=== PATIENT | female | born 1980 | race Caucasian/White ===

== ENCOUNTER 2020-02-03 08:40 | Emergency (ER) | payer BC, OTHER ==
[~2020-02-03] VITALS: Ht 170 cm; Wt 100.0 kg
[~2020-02-03 08:40] MED LIST: ABCT PO; AC500T PO; CEFP500T4 PO; CODE-54 PO; CPR500T PO; CYCL10TA9 PO; DCS100C PO; DXCC100CRX PO; FRSM20T PO; FURO20TA4 PO; IBP600T1 PO; KETO-22 PO; MAGN400C PO; MECL12.579 PO; METR500T PO; MGX400T PO; MTP25TSR PO; NAPR250T34 PO; NSTU5 PO; OXYC-12 PO; POTA10TA36 PO; POTA20TA15 PO; POTA40LI PO; PRD20T PO; PREN1TAB19 PO; PRM25T PO; PRM5C60 TOP; TRIA16.5 NS
[2020-02-03 09:27] LABS: BASOPHILS % (AUTO) 0 % (0-10); EOSINOPHILS # (AUTO) 0.1 10^3/uL (0.0-0.3); EOSINOPHILS % (AUTO) 1 % (0-10); HEMATOCRIT 41 % (35-52); HEMOGLOBIN 14.1 G/DL (11.5-16.0); LYMPHOCYTES # (AUTO) 1.8 X 10^3 (1.0-4.0); LYMPHOCYTES % (AUTO) 22 % (12-44); MEAN CORPUSCULAR HEMOGLOBIN 31 PG (25-34); MEAN CORPUSCULAR HGB CONC 35 G/DL (32-36); MEAN CORPUSCULAR VOLUME 90 FL (80-99); MEAN PLATELET VOLUME 10.1 FL (7.4-10.4); MONOCYTES # (AUTO) 0.3 X 10^3 (0.0-1.0); MONOCYTES % (AUTO) 3 % (0-12); NEUTROPHILS % (AUTO) 74 % (42-75); PLATELET COUNT 250 10^3/uL (130-400); RED CELL DISTRIBUTION WIDTH 11.7 % (10.0-14.5); WHITE BLOOD COUNT 8.2 10^3/uL (4.3-11.0)
[2020-02-03 09:36] LABS: ALBUMIN 3.8 GM/DL (3.2-4.5); CHLORIDE 106 MMOL/L (98-107); POTASSIUM 3.6 MMOL/L (3.6-5.0); SODIUM 139 MMOL/L (135-145)
[2020-02-03 09:37] LABS: CALCIUM 8.8 MG/DL (8.5-10.1)
[2020-02-03 09:38] LABS: GLUCOSE 114 MG/DL (70-105); TOTAL PROTEIN 6.4 GM/DL (6.4-8.2)
[2020-02-03 09:39] LABS: CARBON DIOXIDE 23 MMOL/L (21-32)
[2020-02-03 09:40] LABS: BILIRUBIN,TOTAL 0.7 MG/DL (0.1-1.0)
[2020-02-03 09:41] LABS: ALKALINE PHOSPHATASE 79 U/L (40-136)
[2020-02-03 09:42] LABS: CREATININE SERUM 0.64 MG/DL (0.60-1.30); GFR ESTIMATED > 60
[2020-02-03 09:43] LABS: BUN/CREATININE RATIO 6
[2020-02-03 09:45] LABS: ALANINE AMINOTRANSFERASE 34 U/L (0-55)
--- OUTSIDE RECORDS SUMMARY | 2020-02-03 09:46 | XMS REPORT ---
Author Author Milly Leal Organization [facility] Address [address] [place] [address] Care Team Providers Care Bagel Maker Name Role Phone GABRIELLE Leal Unavailable PROBLEMS Type Condition ICD9-CM Code WPT71-FJ Code Onset Dates Condition S tatus SNOMED Code Problem Carpal tunnel syndrome 354.0 Active 68584903 Problem Goiter, unspecified 240.9 Active [id number] ALLERGIES No Information ENCOUNTERS Encounter Location Date Diagnosis [place] [address] [address] December, Superficial acne vulgaris L7 0.0 [facility] [address] [address] Sep, [facility] [address] [address] Apr, Acute nasopharyngitis J00 [place] [address] [address] May, Bronchitis J40 [place] [address] [address] Jan, Encounter for immunization Z 23 [place] [address] [address] Nov, Daily headache R51 ; Elevate d blood pressure reading R03.0 ; Screening for diabetes mellitus (DM) Z13.1 and Screening for lipid disorders Z13.220 [facility] [address] [address] May, Dysuria R30.0 [place] [address] [address] Aug, Hair loss L65.9 [facility] [address] [id number] [address] [place] [address], [place] [address] Aug, Hair loss L65.9 [facility] [address] [id number] [address] [place] [address], [place] [address] Aug, [facility] [address] [id number] [address] [place] [address], [place] [address] Aug, Arm pain M79.603 [facility] [address] [id number] [address] [place] [address], [place] [address] Nov, [facility] [address] [id number] [address] [place] [address], [place] [address] Nov, [facility] [address] [id number] [address] [place] [address], [place] [address] Aug, [facility] [address] [id number] [address] [place] [address], [place] [address] Aug, [facility] [address] [id number] [address] [place] [address], [place] [address] Jun, [facility] [address] [id number] [address] [place] [address], [place] [address] Jun, [facility] [address] [id number] [address] [place] [address], [place] [address] Jun, [facility] [address] [id number] [address] [place] [address], [place] [address] Jun, [facility] [address] [id number] [address] [place] [address], [place] [address] Jun, [facility] [address] [id number] [address] [place] [address], [place] [address] Feb, [facility] [address] [id number] [address] [place] [address], [place] [address] Feb, [facility] [address] [id number] [address] [place] [address], [place] [address] Feb, [facility] [address] [id number] [facility] [place] [address] Feb, [facility] [address] [id number] [address] [place] [address], [place] [address] Jan, [facility] [address] [id number] [address] [place] [address], [place] [address] Jan, [facility] [address] [id number] [address] [place] [address], [place] [address] Jan, [facility] [address] [id number] [address] [place] [address], [place] [address] Jan, [facility] [address] [id number] [address] [place] [address], [place] [address] Nov, [facility] [address] [id number] [address] [place] [address], [place] [address] Nov, [facility] [address] [id number] [address] [place] [address], [place] [address] Oct, [facility] [address] [id number] [address] [place] [address], [place] [address] Oct, [facility] [address] [id number] [address] [place] [address], [place] [address] Sep, [facility] [address] [id number] [address] [place] [address], [place] [address] Sep, [facility] [address] [id number] [address] [place] [address], [place] [address] Aug, [facility] [address] [id number] [address] [place] [address], [place] [address] Aug, [facility] [address] [id number] [address] [place] [address], [place] [address] Jun, [facility] [address] [id number] [address] [place] [address], [place] [address] Jun, [facility] [address] [id number] [address] [place] [address], [place] [address] Jun, [facility] [address] [id number] [address] [place] [address], [place] [address] Jun, [facility] [address] [id number] [address] [place] [address], [place] [address] Jun, [facility] [address] [id number] [address] [place] [address], [place] [address] Jun, [facility] [address] [id number] [address] [place] [address], [place] [address] Jun, [facility] [address] [id number] [address] [place] [address], [place] [address] Jun, [facility] [address] [id number] [address] [place] [address], [place] [address] Mar, [facility] [address] [id number] [address] [place] [address], [place] [address] Mar, [facility] [address] [id number] [address] [place] [address], [place] [address] Mar, [facility] [address] [id number] [address] [place] [address], [place] [address] Mar, [facility] [address] [id number] [address] [place] [address], [place] [address] Mar, [facility] [address] [id number] [address] [place] [address], [place] [address] Feb, [facility] [address] [id number] [address] [place] [address], [place] [address] Feb, [facility] [address] [id number] [address] [place] [address], [place] [address] Feb, [facility] [address] [id number] [address] [place] [address], [place] [address] Sep, [facility] [address] [id number] [address] [place] [address], [place] [address] Mar, [facility] [address] [facility] [id number] [address] [place] [address] Aug, [facility] [address] [facility] [id number] [address] [place] [address] Jun, [facility] [address] [facility] [id number] [address] [place] [address] Aug, [facility] [address] [facility] [id number] [address] [place] [address] Nov, [facility] [address] [facility] [id number] [address] [place] [address] Jul, [facility] [address] [facility] [id number] [address] [place] [address] Jun, IMMUNIZATIONS No Known Immunizations SOCIAL HISTORY Never Assessed REASON FOR VISIT PLAN OF CARE VITAL SIGNS MEDICATIONS Unknown Medications RESULTS No Results PROCEDURES No Known procedures INSTRUCTIONS MEDICATIONS ADMINISTERED No Known Medications MEDICAL (GENERAL) HISTORY Type Description Date Surgical History section x2
--- OUTSIDE RECORDS SUMMARY | 2020-02-03 09:46 | XMS REPORT ---
Author Author Milly GARIBAY Organization [facility] Address [address] [place] [address] Care Team Providers Care Bar Turner Name Role Phone MADI GARIBAY Unavailable PROBLEMS Type Condition ICD9-CM Code HZY70-PW Code Onset Dates Condition S tatus SNOMED Code Problem Carpal tunnel syndrome 354.0 Active [id number] Problem Goiter, unspecified 240.9 Active 3103144 ALLERGIES No Information ENCOUNTERS Encounter Location Date Diagnosis [place] [id number] [address] December, Superficial acne vulgaris L7 0.0 [facility] [address] [address] Sep, [facility] [address] [address] Apr, Acute nasopharyngitis J00 [place] [address] [address] May, Bronchitis J40 [place] [address] [address] Jan, Encounter for immunization Z 23 [facility] [address] [address] Nov, Daily headache R51 ; Elevate d blood pressure reading R03.0 ; Screening for diabetes mellitus (DM) Z13.1 and Screening for lipid disorders Z13.220 [facility] [address] [address] May, Dysuria R30.0 [facility] [address] [address] Aug, Hair loss L65.9 [facility] [address] [id number] [address] [place] [address], [place] [address] Aug, Hair loss L65.9 [facility] [address] [id number] [address] [place] [address], [place] [address] Aug, [facility] [address] [id number] [address] [place] [address], [place] [address] Aug, Arm pain M79.603 [facility] [address] [id number] [address] [place] [address], [place] [address] Nov, [facility] [address] [id number] [address] [place] [address], [place] [address] Nov, [facility] [address] [id number] [address] [place] [address], [place] [address] Aug, [facility] [address] [id number] [address] [place] [address], [place] [address] Aug, [facility] [address] [id number] [address] [place] [address], [place] [address] Jun, [facility] [address] [id number] [address] [place] [address], [place] [address] Jun, [facility] [address] [id number] [address] [place] [address], [place] [address] Jun, [facility] [address] [id number] [address] [place] [address], [place] [address] Jun, [facility] [address] [id number] [address] [place] [address], [place] [address] Jun, [facility] [address] [id number] [address] [place] [address], [place] [address] Feb, [facility] [address] [id number] [address] [place] [address], [place] [address] Feb, [facility] [address] [id number] [address] [place] [address], [place] [address] Feb, [facility] [address] [id number] [address] [place] [address], [place] [address] Feb, [facility] [address] [id number] [address] [place] [address], [place] [address] Jan, [facility] [address] [id number] [address] [place] [address], [place] [address] Jan, [facility] [address] [id number] [address] [place] [address], [place] [address] Jan, [facility] [address] [id number] [address] [place] [address], [place] [address] Jan, [facility] [address] [id number] [address] [place] [address], [place] [address] Nov, [facility] [address] [id number] [address] [place] [address], [place] [address] Nov, [facility] [address] [id number] [address] [place] [address], [place] [address] Oct, [facility] [address] [id number] [address] [place] [address], [place] [address] Oct, [facility] [address] [id number] [address] [place] [address], [place] [address] Sep, [facility] [address] [id number] [address] [place] [address], [place] [address] Sep, [facility] [address] [id number] [address] [place] [address], [place] [address] Aug, [facility] [address] [id number] [address] [place] [address], [place] [address] Aug, [facility] [address] [id number] [address] [place] [address], [place] [address] Jun, [facility] [address] [id number] [address] [place] [address], [place] [address] Jun, [facility] [address] [id number] [address] [place] [address], [place] [address] Jun, [facility] [address] [id number] [address] [place] [address], [place] [address] Jun, [facility] [address] [id number] [address] [place] [address], [place] [address] Jun, [facility] [address] [id number] [address] [place] [address], [place] [address] Jun, [facility] [address] [id number] [address] [place] [address], [place] [address] Jun, [facility] [address] [id number] [address] [place] [address], [place] [address] Jun, [facility] [address] [id number] [address] [place] [address], [place] [address] Mar, [facility] [address] [id number] [address] [place] [address], [place] [address] Mar, [facility] [address] [id number] [address] [place] [address], [place] [address] Mar, [facility] [address] [id number] [address] [place] [address], [place] [address] Mar, [facility] [address] [id number] [address] [place] [address], [place] [address] Mar, [facility] [address] [id number] [address] [place] [address], [place] [address] Feb, [facility] [address] [id number] [address] [place] [address], [place] [address] Feb, [facility] [address] [id number] [address] [place] [address], [place] [address] Feb, [facility] [address] [id number] [address] [place] [address], [place] [address] Sep, [facility] [address] [id number] [address] [place] [address], [place] [address] Mar, [facility] [address] [facility] [id number] [address] [place] [address] Aug, [facility] [address] [facility] [id number] [address] [place] [address] Jun, [facility] [address] [facility] [id number] [address] [place] [address] Aug, [facility] [address] [facility] [id number] [address] [place] [address] 14 Nov, 2009 [facility] [address] [facility] [id number] [address] [place] [address] Jul, [facility] [address] [facility] [id number] [address] [place] [address] Jun, IMMUNIZATIONS No Known Immunizations SOCIAL HISTORY Never Assessed REASON FOR VISIT PLAN OF CARE VITAL SIGNS Height 67 in 2014-03-06 Weight 187.99 lbs 2014-03-06 Temperature 97.6 degrees Fahrenheit 2014-03-06 Heart Rate 84 bpm 2014-03-06 Respiratory Rate 20 2014-03-06 Blood pressure systolic 128 mmHg 2014-03-06 Blood pressure diastolic 82 mmHg 2014-03-06 MEDICATIONS Unknown Medications RESULTS No Results PROCEDURES Procedure Date Ordered Result Body Site US EXAM OF HEAD AND NECK March 06, 2014 INSTRUCTIONS MEDICATIONS ADMINISTERED No Known Medications MEDICAL (GENERAL) HISTORY Type Description Date Surgical History section x2
--- OUTSIDE RECORDS SUMMARY | 2020-02-03 09:46 | XMS REPORT ---
Author Author Milly GARIBAY [facility] Address [address] [place] [address] Care Team Providers Care Distribution Field Technician Name Role Phone MADI GARIBAY Unavailable PROBLEMS Type Condition ICD9-CM Code XWW66-ES Code Onset Dates Condition S tatus SNOMED Code Problem Carpal tunnel syndrome 354.0 Active 14002132 Problem Goiter, unspecified 240.9 Active 2002320 ALLERGIES No Information ENCOUNTERS Encounter Location Date Diagnosis [address] [address] December, Superficial acne vulgaris L70.[address] [address] Sep, [facility] [place] [id number] [place] [address] Apr, Acute nasopharyngitis J00 [address] [address] May, Bronchitis J40 [address] [address] Jan, Encounter for immunization Z23 [address] [address] Nov, Daily headache R51 ; Elevated blood pres sure reading R03.0 ; Screening for diabetes mellitus (DM) Z13.1 and Screening for lipid disorders Z13.220 [facility] [place] [id number] [address] [place] [address] May, Dysuria R30.[address] [address] Aug, Hair loss L65.9 [place] [id number] [id number] [place] [address] 07 Aug, 2015 Hair loss L65.9 [facility] [address] [id number] [place] [address] Aug, [facility] [address] [id number] [place] [address] Aug, Arm pain M79.603 [facility] [address] [id number] [place] [address] 14 Nov, 2014 [facility] [address] [id number] [place] [address] Nov, [facility] [address] [id number] [place] [address] Aug, [facility] [address] [id number] [place] [address] Aug, [facility] [address] [id number] [place] [address] Jun, [facility] [address] [id number] [place] [address] Jun, [facility] [address] [id number] [place] [address] Jun, [facility] [address] [id number] [place] [address] Jun, [facility] [address] [id number] [place] [address] Jun, [facility] [address] [id number] [place] [address] Feb, [facility] [address] [id number] [place] [address] Feb, [facility] [address] [id number] [place] [address] Feb, [facility] [address] [id number] [place] [address] Feb, [facility] [address] [id number] [place] [address] Jan, [facility] [address] [facility] [id number] [place] [address] Jan, [facility] [address] [id number] [place] [address] Jan, [facility] [address] [id number] [place] [address] Jan, [facility] [address] [id number] [place] [address] Nov, [facility] [address] [id number] [place] [address] Nov, [facility] [address] [id number] [place] [address] Oct, [facility] [address] [id number] [place] [address] Oct, [facility] [address] [id number] [place] [address] Sep, [facility] [address] [id number] [place] [address] Sep, [facility] [address] [id number] [place] [address] Aug, [facility] [address] [id number] [place] [address] Aug, [facility] [address] [id number] [place] [address] Jun, [facility] [address] [id number] [place] [address] Jun, [facility] [address] [id number] [place] [address] Jun, [facility] [address] [id number] [place] [address] Jun, [facility] [address] [id number] [place] [address] Jun, [facility] [address] [id number] [place] [address] Jun, [facility] [address] [id number] [place] [address] Jun, [facility] [address] [id number] [place] [address] Jun, [facility] [address] [id number] [place] [address] Mar, [facility] [address] [id number] [place] [address] Mar, [facility] [address] [id number] [place] [address] Mar, [facility] [address] [id number] [place] [address] Mar, [facility] [address] [id number] [place] [address] Mar, [facility] [address] [id number] [place] [address] Feb, [facility] [address] [id number] [place] [address] Feb, [facility] [address] [id number] [place] [address] Feb, [facility] [address] [id number] [place] [address] Sep, [facility] [address] [id number] [place] [address] Mar, [facility] [address] [id number] [place] [address] Aug, [facility] [address] [id number] [place] [address] Jun, [facility] [address] [id number] [place] [address] Aug, [facility] [address] [id number] [place] [address] Nov, [facility] [address] [facility] [id number] [place] [address] Jul, [facility] [address] [facility] [id number] [place] [address] Jun, IMMUNIZATIONS No Known Immunizations SOCIAL HISTORY Never Assessed REASON FOR VISIT PLAN OF CARE VITAL SIGNS Height 67 in 2013-10-17 Weight 193.38 lbs 2013-10-17 Temperature 97.8 degrees Fahrenheit 2013-10-17 Heart Rate 78 bpm 2013-10-17 Respiratory Rate 18 2013-10-17 Blood pressure systolic 118 mmHg 2013-10-17 Blood pressure diastolic 74 mmHg 2013-10-17 MEDICATIONS Unknown Medications RESULTS No Results PROCEDURES No Known procedures INSTRUCTIONS MEDICATIONS ADMINISTERED No Known Medications MEDICAL (GENERAL) HISTORY Type Description Date Surgical History section x2
--- OUTSIDE RECORDS SUMMARY | 2020-02-03 09:46 | XMS REPORT ---
Author Author Milly GARIBAY [facility] Address [address] [place] [address] Care Team Providers Care Speech And Drama Teacher Name Role Phone MADI GARIBAY Unavailable PROBLEMS Type Condition ICD9-CM Code [id number] Code Onset Dates Condition S tatus SNOMED Code Problem Carpal tunnel syndrome 354.0 Active [id number] Problem Goiter, unspecified 240.9 Active 6989695 ALLERGIES No Information ENCOUNTERS Encounter Location Date Diagnosis [place] [address] [address] December, Superficial acne vulgaris L7 0.0 [facility] [place] [address] [address] Sep, [facility] [address] [address] Apr, Acute nasopharyngitis J00 [place] [address] [address] May, Bronchitis J40 [place] [address] [address] Jan, Encounter for immunization Z 23 [facility] [place] [address] [address] Nov, Daily headache R51 ; Elevate d blood pressure reading R03.0 ; Screening for diabetes mellitus (DM) Z13.1 and Screening for lipid disorders Z13.220 [facility] [address] [address] May, Dysuria R30.0 [facility] [place] [address] [address] Aug, Hair loss L65.9 [facility] [address] [id number] [address] [place] [address], [place] [address] Aug, Hair loss L65.9 [facility] [address] [id number] [address] [place] [address], [place] [address] Aug, [facility] [address] [id number] [address] [place] [address], [place] [address] Aug, Arm pain M79.603 [facility] [address] [id number] [address] [place] [address], [place] [address] Nov, [facility] [address] [id number] [address] [place] [address], [place] [address] Nov, [facility] [address] [id number] [address] [place] [address], [place] [address] Aug, [facility] [address] [id number] [address] [place] [address], [place] [address] Aug, [facility] [address] [id number] [address] [place] [address], [place] [address] Jun, [facility] [address] [id number] [address] [place] [address], [place] [address] Jun, [facility] [address] [id number] [address] [place] [address], [place] [address] Jun, [facility] [address] [id number] [address] [place] [address], [place] [address] Jun, [facility] [address] [id number] [address] [place] [address], [place] [address] Jun, [facility] [address] [id number] [address] [place] [address], [place] [address] Feb, [facility] [address] [id number] [address] [place] [address], [place] [address] Feb, [facility] [address] [id number] [address] [place] [address], [place] [address] Feb, [facility] [address] [id number] [address] [place] [address], [place] [address] Feb, [facility] [address] [id number] [address] [place] [address], [place] [address] Jan, [facility] [address] [id number] [address] [place] [address], [place] [address] Jan, [facility] [address] [id number] [address] [place] [address], [place] [address] Jan, [facility] [address] [id number] [address] [place] [address], [place] [address] Jan, [facility] [address] [id number] [address] [place] [address], [place] [address] Nov, [facility] [address] [id number] [address] [place] [address], [place] [address] Nov, [facility] [address] [id number] [address] [place] [address], [place] [address] Oct, [facility] [address] [id number] [address] [place] [address], [place] [address] Oct, [facility] [address] [id number] [address] [place] [address], [place] [address] Sep, [facility] [address] [id number] [address] [place] [address], [place] [address] Sep, [facility] [address] [id number] [address] [place] [address], [place] [address] Aug, [facility] [address] [id number] [address] [place] [address], [place] [address] Aug, [facility] [address] [id number] [address] [place] [address], [place] [address] Jun, [facility] [address] [id number] [address] [place] [address], [place] [address] Jun, [facility] [address] [id number] [address] [place] [address], [place] [address] Jun, [facility] [address] [id number] [address] [place] [address], [place] [address] Jun, [facility] [address] [id number] [address] [place] [address], [place] [address] Jun, [facility] [address] [id number] [address] [place] [address], [place] [address] Jun, [facility] [address] [id number] [address] [place] [address], [place] [address] Jun, [facility] [address] [id number] [address] [place] [address], [place] [address] Jun, [facility] [address] [id number] [address] [place] [address], [place] [address] Mar, [facility] [address] [id number] [address] [place] [address], [place] [address] Mar, [facility] [address] [id number] [address] [place] [address], [place] [address] Mar, [facility] [address] [id number] [address] [place] [address], [place] [address] Mar, [facility] [address] [id number] [address] [place] [address], [place] [address] Mar, [facility] [address] [id number] [address] [place] [address], [place] [address] Feb, [facility] [address] [id number] [address] [place] [address], [place] [address] Feb, [facility] [address] [id number] [address] [place] [address], [place] [address] Feb, [facility] [address] [id number] [address] [place] [address], [place] [address] Sep, [facility] [address] [id number] [address] [place] [address], [place] [address] Mar, [facility] [place] [address] [facility] [id number] [address] [place] [address] Aug, [facility] [place] [address] [facility] [id number] [address] [place] [address] Jun, [facility] [place] [address] [facility] [id number] [address] [place] [address] Aug, [facility] [place] [address] [facility] [id number] [address] [place] [address] Nov, [facility] [place] [address] [facility] [id number] [address] [place] [address] Jul, [facility] [place] [address] [facility] [id number] [address] [place] [address] Jun, IMMUNIZATIONS No Known Immunizations SOCIAL HISTORY Never Assessed REASON FOR VISIT PLAN OF CARE VITAL SIGNS MEDICATIONS Unknown Medications RESULTS No Results PROCEDURES No Known procedures INSTRUCTIONS MEDICATIONS ADMINISTERED No Known Medications MEDICAL (GENERAL) HISTORY Type Description Date Surgical History section x2
--- OUTSIDE RECORDS SUMMARY | 2020-02-03 09:46 | XMS REPORT ---
Author Author Milly GARIBAY [facility] Address [address] [place] [address] Care Team Providers Care Toll Gate Tender Name Role Phone MADI GARIBAY Unavailable PROBLEMS Type Condition ICD9-CM Code [id number] Code Onset Dates Condition S tatus SNOMED Code Problem Carpal tunnel syndrome 354.0 Active [id number] Problem Goiter, unspecified 240.9 Active 3785651 ALLERGIES No Information ENCOUNTERS Encounter Location Date Diagnosis [address] [address] December, Superficial acne vulgaris L70.[address] [address] Sep, [facility] [place] [id number] [place] [address] Apr, Acute nasopharyngitis J00 [address] [address] May, Bronchitis J40 [address] [address] Jan, Encounter for immunization Z23 [address] [address] Nov, Daily headache R51 ; Elevated blood pres sure reading R03.0 ; Screening for diabetes mellitus (DM) Z13.1 and Screening for lipid disorders Z13.220 [facility] [place] [id number] [place] [address] May, Dysuria R30.[address] [address] Aug, Hair loss L65.9 [place] [id number] [id number] [place] [address] 07 Aug, 2015 Hair loss L65.9 [facility] [address] [id number] [place] [address] Aug, [facility] [address] [id number] [place] [address] Aug, Arm pain M79.603 [facility] [address] [id number] [place] [address] 14 Nov, 2014 [facility] [address] [id number] [place] [address] Nov, [facility] [address] [id number] [place] [address] Aug, [facility] [address] [id number] [place] [address] Aug, [facility] [address] [id number] [place] [address] Jun, [facility] [address] [id number] [place] [address] Jun, [facility] [address] [id number] [place] [address] Jun, [facility] [address] [id number] [place] [address] Jun, [facility] [address] [id number] [place] [address] Jun, [facility] [address] [id number] [place] [address] Feb, [facility] [address] [id number] [place] [address] Feb, [facility] [address] [id number] [place] [address] Feb, [facility] [address] [id number] [place] [address] Feb, [facility] [address] [id number] [place] [address] Jan, [facility] [address] [facility] [id number] [place] [address] Jan, [facility] [address] [id number] [place] [address] Jan, [facility] [address] [id number] [place] [address] Jan, [facility] [address] [id number] [place] [address] Nov, [facility] [address] [id number] [place] [address] Nov, [facility] [address] [id number] [place] [address] Oct, [facility] [address] [id number] [place] [address] Oct, [facility] [address] [id number] [place] [address] Sep, [facility] [address] [id number] [place] [address] Sep, [facility] [address] [id number] [place] [address] Aug, [facility] [address] [id number] [place] [address] Aug, [facility] [address] [id number] [place] [address] Jun, [facility] [address] [id number] [place] [address] Jun, [facility] [address] [id number] [place] [address] Jun, [facility] [address] [id number] [place] [address] Jun, [facility] [address] [id number] [place] [address] Jun, [facility] [address] [id number] [place] [address] Jun, [facility] [address] [id number] [place] [address] Jun, [facility] [address] [id number] [place] [address] Jun, [facility] [address] [id number] [place] [address] Mar, [facility] [address] [id number] [place] [address] Mar, [facility] [address] [id number] [place] [address] Mar, [facility] [address] [id number] [place] [address] Mar, [facility] [address] [id number] [place] [address] Mar, [facility] [address] [id number] [place] [address] Feb, [facility] [address] [id number] [place] [address] Feb, [facility] [address] [id number] [place] [address] Feb, [facility] [address] [id number] [place] [address] Sep, [facility] [address] [id number] [place] [address] Mar, [facility] [address] [id number] [place] [address] Aug, [facility] [address] [id number] [place] [address] Jun, [facility] [address] [id number] [place] [address] Aug, [facility] [address] [id number] [place] [address] Nov, [facility] [address] [facility] [id number] [place] [address] Jul, [facility] [address] [facility] [id number] [place] [address] Jun, IMMUNIZATIONS No Known Immunizations SOCIAL HISTORY Never Assessed REASON FOR VISIT PLAN OF CARE VITAL SIGNS Height 67 in 2013-12-03 Weight 191.3 lbs 2013-12-03 Temperature 98 degrees Fahrenheit 2013-12-03 Blood pressure systolic 118 mmHg 2013-12-03 Blood pressure diastolic 70 mmHg 2013-12-03 MEDICATIONS Unknown Medications RESULTS No Results PROCEDURES No Known procedures INSTRUCTIONS MEDICATIONS ADMINISTERED No Known Medications MEDICAL (GENERAL) HISTORY Type Description Date Surgical History section x2
--- OUTSIDE RECORDS SUMMARY | 2020-02-03 09:46 | XMS REPORT ---
Author Author Milly Leal Organization [facility] Address [address] [place] [address] Care Team Providers Care Pain Coordinator Name Role Phone GABRIELLE Leal Unavailable PROBLEMS Type Condition ICD9-CM Code [id number] Code Onset Dates Condition S tatus SNOMED Code Problem Carpal tunnel syndrome 354.0 Active 21240010 Problem Goiter, unspecified 240.9 Active 0189670 ALLERGIES No Information ENCOUNTERS Encounter Location Date Diagnosis [place] [address] [address] December, Superficial acne vulgaris L7 0.0 [facility] [address] [address] Sep, [facility] [address] [address] Apr, Acute nasopharyngitis J00 [place] [address] [address] May, Bronchitis J40 [place] [address] [address] Jan, Encounter for immunization Z 23 [place] [address] [address] Nov, Daily headache R51 ; Elevate d blood pressure reading R03.0 ; Screening for diabetes mellitus (DM) Z13.1 and Screening for lipid disorders Z13.220 [facility] [address] [address] May, Dysuria R30.0 [place] [address] [address] Aug, Hair loss L65.9 [facility] [address] [id number] [address] [place] [address], [place] [address] Aug, Hair loss L65.9 [facility] [address] [id number] [address] [place] [address], [place] [address] Aug, [facility] [address] [id number] [address] [place] [address], [place] [address] Aug, Arm pain M79.603 [facility] [address] [id number] [address] [place] [address], [place] [address] Nov, [facility] [address] [id number] [address] [place] [address], [place] [address] Nov, [facility] [address] [id number] [address] [place] [address], [place] [address] Aug, [facility] [address] [id number] [address] [place] [address], [place] [address] Aug, [facility] [address] [id number] [address] [place] [address], [place] [address] Jun, [facility] [address] [id number] [address] [place] [address], [place] [address] Jun, [facility] [address] [id number] [address] [place] [address], [place] [address] Jun, [facility] [address] [id number] [address] [place] [address], [place] [address] Jun, [facility] [address] [id number] [address] [place] [address], [place] [address] Jun, [facility] [address] [id number] [address] [place] [address], [place] [address] Feb, [facility] [address] [id number] [address] [place] [address], [place] [address] Feb, [facility] [address] [id number] [address] [place] [address], [place] [address] Feb, [facility] [address] [id number] [facility] [place] [address] Feb, [facility] [address] [id number] [address] [place] [address], [place] [address] Jan, [facility] [address] [id number] [address] [place] [address], [place] [address] Jan, [facility] [address] [id number] [address] [place] [address], [place] [address] Jan, [facility] [address] [id number] [address] [place] [address], [place] [address] Jan, [facility] [address] [id number] [address] [place] [address], [place] [address] Nov, [facility] [address] [id number] [address] [place] [address], [place] [address] Nov, [facility] [address] [id number] [address] [place] [address], [place] [address] Oct, [facility] [address] [id number] [address] [place] [address], [place] [address] Oct, [facility] [address] [id number] [address] [place] [address], [place] [address] Sep, [facility] [address] [id number] [address] [place] [address], [place] [address] Sep, [facility] [address] [id number] [address] [place] [address], [place] [id number] Aug, [facility] [address] [id number] [address] [place] [address], [place] [id number] Aug, [facility] [address] [id number] [address] [place] [address], [place] [id number] Jun, [facility] [address] [id number] [address] [place] [address], [place] [id number] Jun, [facility] [address] [id number] [address] [place] [address], [place] [id number] Jun, [facility] [address] [id number] [address] [place] [address], [place] [id number] Jun, [facility] [address] [id number] [address] [place] [address], [place] [id number] Jun, [facility] [address] [id number] [address] [place] [address], [place] [id number] Jun, [facility] [address] [id number] [address] [place] [address], [place] [id number] Jun, [facility] [address] [id number] [address] [place] [address], [place] [id number] Jun, [facility] [address] [id number] [address] [place] [address], [place] [id number] Mar, [facility] [address] [id number] [address] [place] [address], [place] [id number] Mar, [facility] [address] [id number] [address] [place] [address], [place] [id number] Mar, [facility] [address] [id number] [address] [place] [address], [place] [id number] Mar, [facility] [address] [id number] [address] [place] [address], [place] [id number] Mar, [facility] [address] [id number] [address] [place] [address], [place] [id number] Feb, [facility] [address] [id number] [address] [place] [address], [place] [address] Feb, [facility] [address] [id number] [address] [place] [address], [place] [id number] Feb, [facility] [address] [id number] [address] [place] [address], [place] [id number] Sep, [facility] [address] [id number] [address] [place] [address], [place] [id number] Mar, [facility] [address] [facility] [id number] [address] [place] [id number] Aug, [facility] [address] [facility] [id number] [address] [place] [id number] Jun, [facility] [address] [facility] [id number] [address] [place] [id number] Aug, [facility] [address] [facility] [id number] [address] [place] [id number] Nov, [facility] [address] [facility] [id number] [address] [place] [id number] Jul, [facility] [address] [facility] [id number] [address] [place] [id number] Jun, IMMUNIZATIONS No Known Immunizations SOCIAL HISTORY Never Assessed REASON FOR VISIT PLAN OF CARE VITAL SIGNS MEDICATIONS Unknown Medications RESULTS No Results PROCEDURES No Known procedures INSTRUCTIONS MEDICATIONS ADMINISTERED No Known Medications MEDICAL (GENERAL) HISTORY Type Description Date Surgical History section x2
--- OUTSIDE RECORDS SUMMARY | 2020-02-03 09:46 | XMS REPORT ---
Author Author Milly GARIBAY [facility] Address [address] [place] [address] Care Team Providers Care Chain Link Fence Installer Name Role Phone MADI GARIBAY Unavailable PROBLEMS Type Condition ICD9-CM Code [id number] Code Onset Dates Condition S tatus SNOMED Code Problem Carpal tunnel syndrome 354.0 Active 25585829 Problem Goiter, unspecified 240.9 Active 7780409 ALLERGIES No Information ENCOUNTERS Encounter Location Date Diagnosis [place] [id number] [address] December, Superficial acne vulgaris L7 0.0 [facility] [address] [address] Sep, [facility] WALK IN [facility] [address] [address] Apr, Acute nasopharyngitis J00 [place] [address] [address] May, Bronchitis J40 [place] [address] [address] Jan, Encounter for immunization Z 23 [facility] [address] [address] Nov, Daily headache R51 ; Elevate d blood pressure reading R03.0 ; Screening for diabetes mellitus (DM) Z13.1 and Screening for lipid disorders Z13.220 [facility] WALK IN [facility] [address] [address] May, Dysuria R30.0 [facility] [address] [address] Aug, Hair loss L65.9 [facility] [address] [id number] [address] [place] [address], [place] [address] Aug, Hair loss L65.9 [facility] [address] [id number] [address] [place] [address], [place] [address] Aug, [facility] [address] [id number] [address] [place] [address], [place] [address] Aug, Arm pain M79.603 [facility] [address] [id number] [address] [place] [address], [place] [address] Nov, [facility] [address] [id number] [address] [place] [address], [place] [address] Nov, [facility] [address] [id number] [address] [place] [address], [place] [address] Aug, [facility] [address] [id number] [address] [place] [address], [place] [address] Aug, [facility] [address] [id number] [address] [place] [address], [place] [address] Jun, [facility] [address] [id number] [address] [place] [address], [place] [address] Jun, [facility] [address] [id number] [address] [place] [address], [place] [address] Jun, [facility] [address] [id number] [address] [place] [address], [place] [address] Jun, [facility] [address] [id number] [address] [place] [address], [place] [address] Jun, [facility] [address] [id number] [address] [place] [address], [place] [address] Feb, [facility] [address] [id number] [address] [place] [address], [place] [address] Feb, [facility] [address] [id number] [address] [place] [address], [place] [address] Feb, [facility] [address] [id number] [address] [place] [address], [place] [address] Feb, [facility] [address] [id number] [address] [place] [address], [place] [address] Jan, [facility] [address] [id number] [address] [place] [address], [place] [address] Jan, [facility] [address] [id number] [address] [place] [address], [place] [address] Jan, [facility] [address] [id number] [address] [place] [address], [place] [address] Jan, [facility] [address] [id number] [address] [place] [address], [place] [address] Nov, [facility] [address] [id number] [address] [place] [address], [place] [address] Nov, [facility] [address] [id number] [address] [place] [address], [place] [address] Oct, [facility] [address] [id number] [address] [place] [address], [place] [address] Oct, [facility] [address] [id number] [address] [place] [address], [place] [address] Sep, [facility] [address] [id number] [address] [place] [address], [place] [address] Sep, [facility] [address] [id number] [address] [place] [address], [place] [address] Aug, [facility] [address] [id number] [address] [place] [address], [place] [address] Aug, [facility] [address] [id number] [address] [place] [address], [place] [address] Jun, [facility] [address] [id number] [address] [place] [address], [place] [address] Jun, [facility] [address] [id number] [address] [place] [address], [place] [address] Jun, [facility] [address] [id number] [address] [place] [address], [place] [address] Jun, [facility] [address] [id number] [address] [place] [address], [place] [address] Jun, [facility] [address] [id number] [address] [place] [address], [place] [address] Jun, [facility] [address] [id number] [address] [place] [address], [place] [address] Jun, [facility] [address] [id number] [address] [place] [address], [place] [address] Jun, [facility] [address] [id number] [address] [place] [address], [place] [address] Mar, [facility] [address] [id number] [address] [place] [address], [place] [address] Mar, [facility] [address] [id number] [address] [place] [address], [place] [address] Mar, [facility] [address] [id number] [address] [place] [address], [place] [address] Mar, [facility] [address] [id number] [address] [place] [address], [place] [address] Mar, [facility] [address] [id number] [address] [place] [address], [place] [address] Feb, [facility] [address] [id number] [address] [place] [address], [place] [address] Feb, [facility] [address] [id number] [address] [place] [address], [place] [address] Feb, [facility] [address] [id number] [address] [place] [address], [place] [address] Sep, [facility] [address] [id number] [address] [place] [address], [place] [address] Mar, [facility] [address] [facility] [id number] [address] [place] [address] Aug, [facility] [address] [facility] [id number] [address] [place] [address] Jun, [facility] [address] [facility] [id number] [address] [place] [address] Aug, [facility] [address] [facility] [id number] [address] [place] [address] Nov, [facility] [address] [facility] [id number] [address] [place] [address] Jul, [facility] [address] [facility] [id number] [address] [place] [address] Jun, IMMUNIZATIONS No Known Immunizations SOCIAL HISTORY Never Assessed REASON FOR VISIT PLAN OF CARE VITAL SIGNS MEDICATIONS Unknown Medications RESULTS No Results PROCEDURES No Known procedures INSTRUCTIONS MEDICATIONS ADMINISTERED No Known Medications MEDICAL (GENERAL) HISTORY Type Description Date Surgical History section x2
--- OUTSIDE RECORDS SUMMARY | 2020-02-03 09:46 | XMS REPORT ---
Author Author Milly Leal Organization [facility] Address [address] [place] [address] Care Team Providers Care Metal Expediter Name Role Phone GABRIELLE Leal Unavailable PROBLEMS Type Condition ICD9-CM Code [id number] Code Onset Dates Condition S tatus SNOMED Code Problem Carpal tunnel syndrome 354.0 Active 91276664 Problem Goiter, unspecified 240.9 Active 4651830 ALLERGIES No Information ENCOUNTERS Encounter Location Date Diagnosis [place] [address] [address] December, Superficial acne vulgaris L7 0.0 [facility] [address] [address] Sep, [facility] W[facility] IN [facility] [address] [address] Apr, Acute nasopharyngitis J00 [place] [address] [address] May, Bronchitis J40 [place] [address] [address] Jan, Encounter for immunization Z 23 [place] [address] [address] Nov, Daily headache R51 ; Elevate d blood pressure reading R03.0 ; Screening for diabetes mellitus (DM) Z13.1 and Screening for lipid disorders Z13.220 [facility] W[facility] IN [facility] [address] [address] May, Dysuria R30.0 [place] [address] [address] Aug, Hair loss L65.9 [facility] [address] [id number] [address] [place] [address], [place] [address] Aug, Hair loss L65.9 [facility] [address] [id number] [address] [place] [address], [place] [address] Aug, [facility] [address] [id number] [address] [place] [address], [place] [address] Aug, Arm pain M79.603 [facility] [address] [id number] [address] [place] [address], [place] [address] Nov, [facility] [address] [id number] [address] [place] [address], [place] [address] Nov, [facility] [address] [id number] [address] [place] [address], [place] [address] Aug, [facility] [address] [id number] [address] [place] [address], [place] [address] Aug, [facility] [address] [id number] [address] [place] [address], [place] [address] Jun, [facility] [address] [id number] [address] [place] [address], [place] [address] Jun, [facility] [address] [id number] [address] [place] [address], [place] [address] Jun, [facility] [address] [id number] [address] [place] [address], [place] [address] Jun, [facility] [address] [id number] [address] [place] [address], [place] [address] Jun, [facility] [address] [id number] [address] [place] [address], [place] [address] Feb, [facility] [address] [id number] [address] [place] [address], [place] [address] Feb, [facility] [address] [id number] [address] [place] [address], [place] [address] Feb, [facility] [address] [id number] [facility] [address] Feb, [facility] [address] [id number] [address] [place] [address], [place] [address] Jan, [facility] [address] [id number] [address] [place] [address], [place] [address] Jan, [facility] [address] [id number] [address] [place] [address], [place] [address] Jan, [facility] [address] [id number] [address] [place] [address], [place] [address] Jan, [facility] [address] [id number] [address] [place] [address], [place] [address] Nov, [facility] [address] [id number] [address] [place] [address], [place] [address] Nov, [facility] [address] [id number] [address] [place] [address], [place] [address] Oct, [facility] [address] [id number] [address] [place] [address], [place] [address] Oct, [facility] [address] [id number] [address] [place] [address], [place] [address] Sep, [facility] [address] [id number] [address] [place] [address], [place] [address] Sep, [facility] [address] [id number] [address] [place] [address], [place] [address] Aug, [facility] [address] [id number] [address] [place] [address], [place] [address] Aug, [facility] [address] [id number] [address] [place] [address], [place] [address] Jun, [facility] [address] [id number] [address] [place] [address], [place] [address] Jun, [facility] [address] [id number] [address] [place] [address], [place] [address] Jun, [facility] [address] [id number] [address] [place] [address], [place] [address] Jun, [facility] [address] [id number] [address] [place] [address], [place] [address] Jun, [facility] [address] [id number] [address] [place] [address], [place] [address] Jun, [facility] [address] [id number] [address] [place] [address], [place] [address] Jun, [facility] [address] [id number] [address] [place] [address], [place] [address] Jun, [facility] [address] [id number] [address] [place] [address], [place] [address] Mar, [facility] [address] [id number] [address] [place] [address], [place] [address] Mar, [facility] [address] [id number] [address] [place] [address], [place] [address] Mar, [facility] [address] [id number] [address] [place] [address], [place] [address] Mar, [facility] [address] [id number] [address] [place] [address], [place] [address] Mar, [facility] [address] [id number] [address] [place] [address], [place] [address] Feb, [facility] [address] [id number] [address] [place] [address], [place] [address] Feb, [facility] [address] [id number] [address] [place] [address], [place] [address] Feb, [facility] [address] [id number] [address] [place] [address], [place] [address] Sep, [facility] [address] [id number] [address] [place] [address], [place] [address] Mar, [facility] [address] [facility] [id number] [address] [place] [address] Aug, [facility] [address] [facility] [id number] [address] [place] [address] Jun, [facility] [address] [facility] [id number] [address] [place] [address] Aug, [facility] [address] [facility] [id number] [address] [place] [address] Nov, [facility] [address] [facility] [id number] [address] [place] [address] Jul, [facility] [address] [facility] [id number] [address] [place] [address] Jun, IMMUNIZATIONS No Known Immunizations SOCIAL HISTORY Never Assessed REASON FOR VISIT PLAN OF CARE VITAL SIGNS Height 67 in 2013-04-07 Weight 172.56 lbs 2013-04-07 Temperature 97.5 degrees Fahrenheit 2013-04-07 Heart Rate 90 bpm 2013-04-07 Respiratory Rate 18 2013-04-07 Blood pressure systolic 122 mmHg 2013-04-07 Blood pressure diastolic 80 mmHg 2013-04-07 MEDICATIONS Unknown Medications RESULTS No Results PROCEDURES Procedure Date Ordered Result Body Site ECHO EXAM OF ABDOMEN Apr 07, 2013 CULTURE, BACTERIA, OTHER Apr 07, 2013 INSTRUCTIONS MEDICATIONS ADMINISTERED No Known Medications MEDICAL (GENERAL) HISTORY Type Description Date Surgical History section x2
--- OUTSIDE RECORDS SUMMARY | 2020-02-03 09:46 | XMS REPORT ---
Author Author Milly EUCEDA Organization [facility] Address [address] [place] [address] Care Team Providers Care Rhit Name Role Phone VARGAS EUCEDA Unavailable PROBLEMS Type Condition ICD9-CM Code [id number] Code Onset Dates Condition S tatus SNOMED Code Problem Carpal tunnel syndrome 354.0 Active [id number] Problem Goiter, unspecified 240.9 Active 1884940 ALLERGIES No Information ENCOUNTERS Encounter Location Date Diagnosis [address] [address] December, Superficial acne vulgaris L70.[address] [address] Sep, [facility] [place] [id number] [address] [place] [address] Apr, Acute nasopharyngitis J00 [address] [address] May, Bronchitis J40 [address] [address] Jan, Encounter for immunization Z23 [address] [address] Nov, Daily headache R51 ; Elevated blood pres sure reading R03.0 ; Screening for diabetes mellitus (DM) Z13.1 and Screening for lipid disorders Z13.220 [facility] [place] [address] [place] [id number] [address] [place] [address] May, Dysuria R30.[address] [address] Aug, Hair loss L65.9 [place] [address] [id number] [place] [address] Aug, Hair loss L65.9 [facility] [address] [id number] [place] [address] Aug, [facility] [address] [id number] [place] [address] Aug, Arm pain M79.603 [facility] [address] [id number] [place] [address] 14 Nov, 2014 [facility] [address] [id number] [place] [address] Nov, [facility] [address] [id number] [place] [address] Aug, [facility] [address] [id number] [place] [address] Aug, [facility] [address] [id number] [place] [address] Jun, [facility] [address] [id number] [place] [address] Jun, [facility] [address] [id number] [place] [address] Jun, [facility] [address] [id number] [place] [address] Jun, [facility] [address] [id number] [place] [address] Jun, [facility] [address] [id number] [place] [address] Feb, [facility] [address] [id number] [place] [address] Feb, [facility] [address] [id number] [place] [address] Feb, [facility] [address] [id number] [place] [address] Feb, [facility] [address] [id number] [place] [address] Jan, [facility] [address] [id number] [place] [address] Jan, [facility] [address] [id number] [place] [address] Jan, [facility] [address] [id number] [place] [address] Jan, [facility] [address] [id number] [place] [address] Nov, [facility] [address] [id number] [place] [address] Nov, [facility] [address] [id number] [place] [address] Oct, [facility] [address] [id number] [place] [address] Oct, [facility] [address] [id number] [place] [address] Sep, [facility] [address] [id number] [place] [address] Sep, [facility] [address] [id number] [place] [address] Aug, [facility] [address] [id number] [place] [address] Aug, [facility] [address] [id number] [place] [address] Jun, [facility] [address] [id number] [place] [address] Jun, [facility] [id number] [place] [address] Jun, [facility] [address] [id number] [place] [address] Jun, [facility] [address] [id number] [place] [address] Jun, [facility] [address] [facility] [id number] [place] [address] Jun, [facility] [address] [id number] [place] [address] Jun, [facility] [address] [id number] [place] [address] Jun, [facility] [address] [id number] [place] [address] Mar, [facility] [address] [id number] [facility] [place] [address] Mar, [facility] [address] [id number] [place] [address] Mar, [facility] [address] [id number] [place] [address] Mar, [facility] [address] [id number] [place] [address] Mar, [facility] [address] [id number] [place] [address] Feb, [facility] [address] [id number] [place] [address] Feb, [facility] [address] [id number] [place] [address] Feb, [facility] [address] [id number] [place] [address] Sep, [facility] [address] [id number] [place] [address] Mar, [facility] [address] [id number] [place] [address] Aug, [facility] [address] [id number] [place] [address] Jun, [facility] [address] [id number] [place] [address] Aug, [facility] [address] [id number] [place] [address] Nov, [facility] [address] [facility] [id number] [place] [address] Jul, [facility] [address] [facility] [id number] [place] [address] Jun, IMMUNIZATIONS No Known Immunizations SOCIAL HISTORY Never Assessed REASON FOR VISIT PLAN OF CARE VITAL SIGNS Height 67 in 2013-09-05 Weight 189.9 lbs 2013-09-05 Temperature 97.9 degrees Fahrenheit 2013-09-05 Heart Rate 72 bpm 2013-09-05 Respiratory Rate 16 2013-09-05 Blood pressure systolic 124 mmHg 2013-09-05 Blood pressure diastolic 68 mmHg 2013-09-05 MEDICATIONS Unknown Medications RESULTS No Results PROCEDURES Procedure Date Ordered Result Body Site ASSAY THYROID STIM HORMONE Sep 05, 2013 VENIPUNCT, ROUTINE* Sep 05, 2013 INSTRUCTIONS MEDICATIONS ADMINISTERED No Known Medications MEDICAL (GENERAL) HISTORY Type Description Date Surgical History section x2
--- OUTSIDE RECORDS SUMMARY | 2020-02-03 09:46 | XMS REPORT ---
Author Author Milly WAGNER Organization [facility] Address [address] [place] [address] Care Team Providers Care Manager Document Control Name Role Phone TOAN WAGNER Unavailable PROBLEMS Type Condition ICD9-CM Code JDD20-DX Code Onset Dates Condition S tatus SNOMED Code Problem Carpal tunnel syndrome 354.0 Active 90543803 Problem Goiter, unspecified 240.9 Active [id number] ALLERGIES No Information ENCOUNTERS Encounter Location Date Diagnosis [place] [id number] [address] December, Superficial acne vulgaris L7 0.0 [facility] [address] [address] Sep, [facility] [address] [address] Apr, Acute nasopharyngitis J00 [place] [address] [address] May, Bronchitis J40 [place] [address] [address] Jan, Encounter for immunization Z 23 [facility] [address] [address] Nov, Daily headache R51 ; Elevate d blood pressure reading R03.0 ; Screening for diabetes mellitus (DM) Z13.1 and Screening for lipid disorders Z13.220 [facility] [address] [address] May, Dysuria R30.0 [facility] [address] [address] Aug, Hair loss L65.9 [facility] [address] [id number] [address] [place] [address], [place] [address] Aug, Hair loss L65.9 [facility] [address] [id number] [address] [place] [address], [place] [address] Aug, [facility] [address] [id number] [address] [place] [address], [place] [address] Aug, Arm pain M79.603 [facility] [address] [id number] [address] [place] [address], [place] [address] Nov, [facility] [address] [id number] [address] [place] [address], [place] [address] Nov, [facility] [address] [id number] [address] [place] [address], [place] [address] Aug, [facility] [address] [id number] [address] [place] [address], [place] [address] Aug, [facility] [address] [id number] [address] [place] [address], [place] [address] Jun, [facility] [address] [id number] [address] [place] [address], [place] [address] Jun, [facility] [address] [id number] [address] [place] [address], [place] [address] Jun, [facility] [address] [id number] [address] [place] [address], [place] [address] Jun, [facility] [address] [id number] [address] [place] [address], [place] [address] Jun, [facility] [address] [id number] [address] [place] [address], [place] [address] Feb, [facility] [address] [id number] [address] [place] [address], [place] [address] Feb, [facility] [address] [id number] [address] [place] [address], [place] [address] Feb, [facility] [address] [id number] [address] [place] [address], [place] [address] Feb, [facility] [address] [id number] [address] [place] [address], [place] [address] Jan, [facility] [address] [id number] [address] [place] [address], [place] [address] Jan, [facility] [address] [id number] [address] [place] [address], [place] [address] Jan, [facility] [address] [id number] [address] [place] [address], [place] [address] Jan, [facility] [address] [id number] [address] [place] [address], [place] [address] Nov, [facility] [address] [id number] [address] [place] [address], [place] [address] Nov, [facility] [address] [id number] [address] [place] [address], [place] [address] Oct, [facility] [address] [id number] [address] [place] [address], [place] [address] Oct, [facility] [address] [id number] [address] [place] [address], [place] [address] Sep, [facility] [address] [id number] [address] [place] [address], [place] [address] Sep, [facility] [address] [id number] [address] [place] [address], [place] [address] Aug, [facility] [address] [id number] [address] [place] [address], [place] [address] Aug, [facility] [address] [id number] [address] [place] [address], [place] [address] Jun, [facility] [address] [id number] [address] [place] [address], [place] [address] Jun, [facility] [address] [id number] [address] [place] [address] Jun, [facility] [address] [id number] [address] [place] [address], [place] [address] Jun, [facility] [address] [id number] [address] [place] [address], [place] [address] Jun, [facility] [address] [id number] [address] [place] [address], [place] [address] Jun, [facility] [address] [id number] [address] [place] [address], [place] [address] Jun, [facility] [address] [id number] [address] [place] [address], [place] [address] Jun, [facility] [address] [id number] [address] [place] [address], [place] [address] Mar, [facility] [address] [id number] [address] [place] [address], [place] [address] Mar, [facility] [address] [id number] [address] [place] [address], [place] [address] Mar, [facility] [address] [id number] [address] [place] [address], [place] [address] Mar, [facility] [address] [id number] [address] [place] [address], [place] [address] Mar, [facility] [address] [id number] [address] [place] [address], [place] [address] Feb, [facility] [address] [id number] [address] [place] [address], [place] [address] Feb, [facility] [address] [id number] [address] [place] [address], [place] [address] Feb, [facility] [address] [id number] [address] [place] [address], [place] [address] Sep, [facility] [address] [id number] [address] [place] [address], [place] [address] Mar, [facility] [address] [facility] [facility] [id number] [address] [place] [address] Aug, [facility] [address] [facility] [address] [facility] [id number] [address] [place] [address] Jun, [facility] [address] [facility] [address] [facility] [id number] [address] [place] [address] Aug, [facility] [address] [facility] [address] [facility] [id number] [address] [place] [address] Nov, [facility] [address] [facility] [facility] [id number] [address] [place] [address] Jul, [facility] [address] [facility] [id number] [address] [place] [address] Jun, IMMUNIZATIONS No Known Immunizations SOCIAL HISTORY Never Assessed REASON FOR VISIT PLAN OF CARE VITAL SIGNS Height 67 in 2013-03-27 Weight 168.1 lbs 2013-03-27 Temperature 98 degrees Fahrenheit 2013-03-27 Heart Rate 82 bpm 2013-03-27 Respiratory Rate 16 2013-03-27 Blood pressure systolic 120 mmHg 2013-03-27 Blood pressure diastolic 72 mmHg 2013-03-27 MEDICATIONS Unknown Medications RESULTS No Results PROCEDURES No Known procedures INSTRUCTIONS MEDICATIONS ADMINISTERED No Known Medications MEDICAL (GENERAL) HISTORY Type Description Date Surgical History section x2
--- OUTSIDE RECORDS SUMMARY | 2020-02-03 09:46 | XMS REPORT ---
Author Author Milly GARIBAY [facility] Address [address] [place] [address] Care Team Providers Care House Moving Supervisor Name Role Phone MADI GARIBAY Unavailable PROBLEMS Type Condition ICD9-CM Code GSN77-ZC Code Onset Dates Condition S tatus SNOMED Code Problem Carpal tunnel syndrome 354.0 Active [id number] Problem Goiter, unspecified 240.9 Active 8475428 ALLERGIES No Information ENCOUNTERS Encounter Location Date Diagnosis [address] [address] December, Superficial acne vulgaris L70.[address] [address] Sep, [facility] [place] [id number] [place] [address] Apr, Acute nasopharyngitis J00 [address] [address] May, Bronchitis J40 [address] [address] Jan, Encounter for immunization Z23 [address] [address] Nov, Daily headache R51 ; Elevated blood pres sure reading R03.0 ; Screening for diabetes mellitus (DM) Z13.1 and Screening for lipid disorders Z13.220 [facility] [place] [id number] [place] [address] May, Dysuria R30.[address] [address] Aug, Hair loss L65.9 [place] [address] [id number] [place] [address] 07 Aug, 2015 Hair loss L65.9 [facility] [address] [id number] [place] [address] Aug, [facility] [address] [id number] [place] [address] Aug, Arm pain M79.603 [facility] [address] [id number] [place] [address] 14 Nov, 2014 [facility] [address] [id number] [place] [address] Nov, [facility] [address] [id number] [place] [address] Aug, [facility] [address] [id number] [place] [address] Aug, [facility] [address] [id number] [place] [address] Jun, [facility] [address] [id number] [place] [address] Jun, [facility] [address] [id number] [place] [address] Jun, [facility] [address] [id number] [place] [address] Jun, [facility] [address] [id number] [place] [address] Jun, [facility] [address] [id number] [place] [address] Feb, [facility] [address] [id number] [place] [address] Feb, [facility] [address] [id number] [place] [address] Feb, [facility] [address] [id number] [place] [address] Feb, [facility] [address] [id number] [place] [address] Jan, [facility] [address] [facility] [id number] [place] [address] Jan, [facility] [address] [id number] [place] [address] Jan, [facility] [address] [id number] [place] [address] Jan, [facility] [address] [id number] [place] [address] Nov, [facility] [address] [id number] [place] [address] Nov, [facility] [address] [id number] [place] [address] Oct, [facility] [address] [id number] [place] [address] Oct, [facility] [address] [id number] [place] [address] Sep, [facility] [address] [id number] [place] [address] Sep, [facility] [address] [id number] [place] [address] Aug, [facility] [address] [id number] [place] [address] Aug, [facility] [address] [id number] [place] [address] Jun, [facility] [address] [id number] [place] [address] Jun, [facility] [address] [id number] [place] [address] Jun, [facility] [address] [id number] [place] [address] Jun, [facility] [address] [id number] [place] [address] Jun, [facility] [address] [id number] [place] [address] Jun, [facility] [address] [id number] [place] [address] Jun, [facility] [address] [id number] [place] [address] Jun, [facility] [address] [id number] [place] [address] Mar, [facility] [address] [id number] [place] [address] Mar, [facility] [address] [id number] [place] [address] Mar, [facility] [address] [id number] [place] [address] Mar, [facility] [address] [id number] [place] [address] Mar, [facility] [address] [id number] [place] [address] Feb, [facility] [address] [id number] [place] [address] Feb, [facility] [address] [id number] [place] [address] Feb, [facility] [address] [id number] [place] [address] Sep, [facility] [address] [id number] [place] [address] Mar, [facility] [address] [id number] [place] [address] Aug, [facility] [address] [id number] [place] [address] Jun, [facility] [address] [id number] [place] [address] Aug, [facility] [address] [id number] [place] [address] Nov, [facility] [address] [facility] [id number] [place] [address] Jul, [facility] [address] [facility] [id number] [place] [address] Jun, IMMUNIZATIONS No Known Immunizations SOCIAL HISTORY Never Assessed REASON FOR VISIT PLAN OF CARE VITAL SIGNS MEDICATIONS Unknown Medications RESULTS No Results PROCEDURES No Known procedures INSTRUCTIONS MEDICATIONS ADMINISTERED No Known Medications MEDICAL (GENERAL) HISTORY Type Description Date Surgical History section x2
--- OUTSIDE RECORDS SUMMARY | 2020-02-03 09:46 | XMS REPORT ---
Author Author Milly GARIBAY [facility] Address [address] [place] [address] Care Team Providers Care Building Services Supervisor Name Role Phone MADI GARIBAY Unavailable PROBLEMS Type Condition ICD9-CM Code ZZB02-PO Code Onset Dates Condition S tatus SNOMED Code Problem Carpal tunnel syndrome 354.0 Active [id number] Problem Goiter, unspecified 240.9 Active [id number] ALLERGIES No Information ENCOUNTERS Encounter Location Date Diagnosis [address] [address] December, Superficial acne vulgaris L70.[address] [address] Sep, [facility] [place] [id number] [address] [place] [address] Apr, Acute nasopharyngitis J00 [address] [address] May, Bronchitis J40 [address] [address] Jan, Encounter for immunization Z23 [address] [address] Nov, Daily headache R51 ; Elevated blood pres sure reading R03.0 ; Screening for diabetes mellitus (DM) Z13.1 and Screening for lipid disorders Z13.220 [facility] [place] [id number] [address] [place] [address] May, Dysuria R30.[address] [address] Aug, Hair loss L65.9 [place] [address] [id number] [place] [address] 07 Aug, 2015 Hair loss L65.9 [facility] [address] [id number] [place] [address] Aug, [facility] [address] [id number] [place] [address] Aug, Arm pain M79.603 [facility] [address] [id number] [place] [address] 14 Nov, 2014 [facility] [address] [id number] [place] [address] Nov, [facility] [address] [id number] [place] [address] Aug, [facility] [address] [id number] [place] [address] Aug, [facility] [address] [id number] [place] [address] Jun, [facility] [address] [id number] [place] [address] Jun, [facility] [address] [id number] [place] [address] Jun, [facility] [address] [id number] [place] [address] Jun, [facility] [address] [id number] [place] [address] Jun, [facility] [address] [id number] [place] [address] Feb, [facility] [address] [id number] [place] [address] Feb, [facility] [address] [id number] [place] [address] Feb, [facility] [address] [id number] [place] [address] Feb, [facility] [address] [id number] [place] [address] Jan, [facility] [address] [facility] [id number] [place] [address] Jan, [facility] [address] [id number] [place] [address] Jan, [facility] [address] [id number] [place] [address] Jan, [facility] [address] [id number] [place] [address] Nov, [facility] [address] [id number] [place] [address] Nov, [facility] [address] [id number] [place] [address] Oct, [facility] [address] [id number] [place] [address] Oct, [facility] [address] [id number] [place] [address] Sep, [facility] [address] [id number] [place] [address] Sep, [facility] [address] [id number] [place] [address] Aug, [facility] [address] [id number] [place] [address] Aug, [facility] [address] [id number] [place] [address] Jun, [facility] [address] [id number] [place] [address] Jun, [facility] [address] [id number] [place] [address] Jun, [facility] [address] [id number] [place] [address] Jun, [facility] [address] [id number] [place] [address] Jun, [facility] [address] [id number] [place] [address] Jun, [facility] [address] [id number] [place] [address] Jun, [facility] [address] [id number] [place] [address] Jun, [facility] [address] [id number] [place] [address] Mar, [facility] [address] [id number] [place] [address] Mar, [facility] [address] [id number] [place] [address] Mar, [facility] [address] [id number] [place] [address] Mar, [facility] [address] [id number] [place] [address] Mar, [facility] [address] [id number] [place] [address] Feb, [facility] [address] [id number] [place] [address] Feb, [facility] [address] [id number] [place] [address] Feb, [facility] [address] [id number] [place] [address] Sep, [facility] [address] [id number] [place] [address] Mar, [facility] [address] [id number] [place] [address] Aug, [facility] [address] [id number] [place] [address] Jun, [facility] [address] [id number] [place] [address] Aug, [facility] [address] [id number] [place] [address] Nov, [facility] [address] [facility] [id number] [place] [address] Jul, [facility] [address] [facility] [id number] [place] [address] Jun, IMMUNIZATIONS No Known Immunizations SOCIAL HISTORY Never Assessed REASON FOR VISIT PLAN OF CARE VITAL SIGNS Height 67 in 2013-11-18 Weight 195.2 lbs 2013-11-18 Temperature 98 degrees Fahrenheit 2013-11-18 Heart Rate 86 bpm 2013-11-18 Respiratory Rate 20 2013-11-18 Blood pressure systolic 120 mmHg 2013-11-18 Blood pressure diastolic 70 mmHg 2013-11-18 MEDICATIONS Unknown Medications RESULTS No Results PROCEDURES No Known procedures INSTRUCTIONS MEDICATIONS ADMINISTERED No Known Medications MEDICAL (GENERAL) HISTORY Type Description Date Surgical History section x2
--- OUTSIDE RECORDS SUMMARY | 2020-02-03 09:46 | XMS REPORT ---
Author Author Milly GARIBAY [facility] Address [address] [place] [address] Care Team Providers Care Shaper And Presser Name Role Phone MADI GARIBAY Unavailable PROBLEMS Type Condition ICD9-CM Code FID86-PR Code Onset Dates Condition S tatus SNOMED Code Problem Carpal tunnel syndrome 354.0 Active 68467326 Problem Goiter, unspecified 240.9 Active 3307904 ALLERGIES No Information ENCOUNTERS Encounter Location Date Diagnosis [place] [address] [address] December, Superficial acne vulgaris L7 0.0 [facility] [address] [address] Sep, [facility] [address] [address] Apr, Acute nasopharyngitis J00 [place] [address] [address] May, Bronchitis J40 [place] [address] [address] Jan, Encounter for immunization Z 23 [facility] [address] [address] Nov, Daily headache R51 ; Elevate d blood pressure reading R03.0 ; Screening for diabetes mellitus (DM) Z13.1 and Screening for lipid disorders Z13.220 [facility] [address] [address] May, Dysuria R30.0 [facility] [address] [address] Aug, Hair loss L65.9 [facility] [address] [id number] [address] [place] [address], [place] [address] Aug, Hair loss L65.9 [facility] [address] [id number] [address] [place] [address], [place] [address] Aug, [facility] [address] [id number] [address] [place] [address], [place] [address] Aug, Arm pain M79.603 [facility] [address] [id number] [address] [place] [address], [place] [address] Nov, [facility] [address] [id number] [address] [place] [address], [place] [address] Nov, [facility] [address] [id number] [address] [place] [address], [place] [address] Aug, [facility] [address] [id number] [address] [place] [address], [place] [address] Aug, [facility] [address] [id number] [address] [place] [address], [place] [address] Jun, [facility] [address] [id number] [address] [place] [address], [place] [address] Jun, [facility] [address] [id number] [address] [place] [address], [place] [address] Jun, [facility] [address] [id number] [address] [place] [address], [place] [address] Jun, [facility] [address] [id number] [address] [place] [address], [place] [address] Jun, [facility] [address] [id number] [address] [place] [address], [place] [address] Feb, [facility] [address] [id number] [address] [place] [address], [place] [address] Feb, [facility] [address] [id number] [address] [place] [address], [place] [address] Feb, [facility] [address] [id number] [address] [place] [address], [place] [address] Feb, [facility] [address] [id number] [address] [place] [address], [place] [address] Jan, [facility] [address] [id number] [address] [place] [address], [place] [address] Jan, [facility] [address] [id number] [address] [place] [address], [place] [address] Jan, [facility] [address] [id number] [address] [place] [address], [place] [address] Jan, [facility] [address] [id number] [address] [place] [address], [place] [address] Nov, [facility] [address] [id number] [address] [place] [address], [place] [address] Nov, [facility] [address] [id number] [address] [place] [address], [place] [address] Oct, [facility] [address] [id number] [address] [place] [address], [place] [address] Oct, [facility] [address] [id number] [address] [place] [address], [place] [address] Sep, [facility] [address] [id number] [address] [place] [address], [place] [address] Sep, [facility] [address] [id number] [address] [place] [address], [place] [address] Aug, [facility] [address] [id number] [address] [place] [address], [place] [address] Aug, [facility] [address] [id number] [address] [place] [address], [place] [address] Jun, [facility] [address] [id number] [address] [place] [address], [place] [address] Jun, [facility] [address] [id number] [address] [place] [address], [place] [address] Jun, [facility] [address] [id number] [address] [place] [address], [place] [address] Jun, [facility] [address] [id number] [address] [place] [address], [place] [address] Jun, [facility] [address] [id number] [address] [place] [address], [place] [address] Jun, [facility] [address] [id number] [address] [place] [address], [place] [address] Jun, [facility] [address] [id number] [address] [place] [address], [place] [address] Jun, [facility] [address] [id number] [address] [place] [address], [place] [address] Mar, [facility] [address] [id number] [address] [place] [address], [place] [address] Mar, [facility] [address] [id number] [address] [place] [address], [place] [address] Mar, [facility] [address] [id number] [address] [place] [address], [place] [address] Mar, [facility] [address] [id number] [address] [place] [address], [place] [address] Mar, [facility] [address] [id number] [address] [place] [address], [place] [address] Feb, [facility] [address] [id number] [address] [place] [address], [place] [address] Feb, [facility] [address] [id number] [address] [place] [address], [place] [address] Feb, [facility] [address] [id number] [address] [place] [address], [place] [address] Sep, [facility] [address] [id number] [address] [place] [address], [place] [address] Mar, [facility] [address] [facility] [id number] [address] [place] [address] Aug, [facility] [address] [facility] [id number] [address] [place] [address] Jun, [facility] [address] [facility] [id number] [address] [place] [address] Aug, [facility] [address] [facility] [id number] [address] [place] [address] Nov, [facility] [address] [facility] [id number] [address] [place] [address] Jul, [facility] [address] [facility] [id number] [address] [place] [address] Jun, IMMUNIZATIONS No Known Immunizations SOCIAL HISTORY Never Assessed REASON FOR VISIT PLAN OF CARE VITAL SIGNS MEDICATIONS Unknown Medications RESULTS No Results PROCEDURES No Known procedures INSTRUCTIONS MEDICATIONS ADMINISTERED No Known Medications MEDICAL (GENERAL) HISTORY Type Description Date Surgical History section x2
--- OUTSIDE RECORDS SUMMARY | 2020-02-03 09:47 | XMS REPORT ---
Author Author Milly Lopez Doctor Organization [facility] Address Unknown Phone Unavailable Care Team Providers Care Internet Manager Name Role Phone Migration, Doctor Unavailable Unavailable PROBLEMS Type Condition ICD9-CM Code SCJ25-PL Code Onset Dates Condition S tatus SNOMED Code Problem Carpal tunnel syndrome 354.0 Active 10733192 Problem Goiter, unspecified 240.9 Active 0063644 ALLERGIES No Information ENCOUNTERS Encounter Location Date Diagnosis [place] [address] [address] Sep, [facility] [address] [address] 30 Apr, 2018 Acute nasopharyngitis J00 [place] [address] [address] May, Bronchitis J40 [place] [address] [address] 20 Jan, 2017 Encounter for immunization Z 23 [place] [address] [address] Nov, Daily headache R51 ; Elevate d blood pressure reading R03.0 ; Screening for diabetes mellitus (DM) Z13.1 and Screening for lipid disorders Z13.220 [facility] [address] [address] May, Dysuria R30.0 [place] [address] [address] Aug, Hair loss L65.9 [place] [address] [address] Aug, Hair loss L65.9 [place] [address] [address] Aug, [facility] [address] [id number] [address] [place] [address], [place] [address] Aug, Arm maxwell M79.603 [facility] [address] [id number] [address] [place] [address], [place] [id number] Nov, [facility] [address] [id number] [address] [place] [address], [place] [id number] Nov, [facility] [address] [id number] [address] [place] [address], [place] [id number] Aug, [facility] [address] [id number] [address] [place] [address], [place] [id number] Aug, [facility] [address] [id number] [address] [place] [address], [place] [id number] Jun, [facility] [address] [id number] [address] [place] [address], [place] [id number] Jun, [facility] [address] [id number] [address] [place] [address], [place] [id number] Jun, [facility] [address] [id number] [address] [place] [address], [place] [id number] Jun, [facility] [address] [id number] [address] [place] [address], [place] [id number] Jun, [facility] [address] [id number] [address] [place] [address], [place] [id number] Feb, [facility] [address] [id number] [address] [place] [address], [place] [id number] Feb, [facility] [address] [id number] [address] [place] [address], [place] [id number] Feb, [facility] [address] [id number] [address] [place] [address], [place] [id number] Feb, [facility] [address] [id number] [address] [place] [address], [place] [id number] Jan, [facility] [address] [id number] [address] [place] [address], [place] [id number] Jan, [facility] [address] [id number] [address] [place] [address], [place] [id number] Jan, [facility] [address] [id number] [address] [place] [address], [place] [id number] Jan, [facility] [address] [id number] [address] [place] [address], [place] [id number] Nov, [facility] [address] [id number] [address] [place] [address], [place] [id number] Nov, [facility] [address] [id number] [address] [place] [address], [place] [id number] Oct, [facility] [address] [id number] [address] [place] [address], [place] [id number] Oct, [facility] [address] [id number] [address] [place] [address], [place] [id number] Sep, [facility] [address] [id number] [address] [place] [address], [place] [id number] Sep, [facility] [address] [id number] [address] [place] [address], [place] [id number] Aug, [facility] [address] [id number] [address] [place] [address], [place] [id number] Aug, [facility] [address] [id number] [address] [place] [address], [place] [id number] Jun, [facility] [address] [id number] [address] [place] [address], [place] [id number] Jun, [facility] [address] [id number] [address] [place] [address], [place] [id number] Jun, [facility] [address] [id number] [address] [place] [address], [place] [id number] Jun, [facility] [address] [id number] [address] [place] [address], [place] [id number] Jun, [facility] [address] [id number] [address] [place] [address], [place] [id number] Jun, [facility] [address] [id number] [address] [place] [address], [place] [id number] Jun, [facility] [address] [id number] [address] [place] [address], [place] [id number] Jun, [facility] [address] [id number] [address] [place] [address], [place] [id number] Mar, [facility] [address] [id number] [address] [place] [address], [place] [id number] Mar, [facility] [address] [id number] [address] [place] [address], [place] [id number] Mar, [facility] [address] [id number] [address] [place] [address], [place] [id number] Mar, [facility] [address] [id number] [address] [place] [address], [place] [id number] Mar, [facility] [address] [id number] [address] [place] [address], [place] [id number] Feb, [facility] [address] [id number] [address] [place] [address], [place] [id number] Feb, [facility] [address] [id number] [address] [place] [address], [place] [id number] Feb, [facility] [address] [id number] [address] [place] [address], [place] [id number] Sep, [facility] [address] [id number] [address] [place] [address], [place] [id number] Mar, [facility] [address] [id number] [address] [place] [address], [place] [id number] Aug, [facility] [address] [id number] [address] [place] [address], [place] [id number] Jun, [facility] [address] [id number] [address] [place] [id number] 13 Aug, 2010 [facility] [address] [facility] [id number] [address] [place] [id number] 14 Nov, 2009 [facility] [address] [facility] [id number] [address] [place] [id number] Jul, [facility] [address] [facility] [id number] [address] [place] [id number] Jun, IMMUNIZATIONS No Known Immunizations SOCIAL HISTORY Never Assessed REASON FOR VISIT [place] [place] VITAL SIGNS MEDICATIONS Unknown Medications RESULTS No Results PROCEDURES No Known procedures INSTRUCTIONS MEDICATIONS ADMINISTERED No Known Medications MEDICAL (GENERAL) HISTORY Type Description Date Surgical History section x2
--- OUTSIDE RECORDS SUMMARY | 2020-02-03 09:47 | XMS REPORT ---
Author Author Milly Lopez Doctor Organization [facility] Address Unknown Phone Unavailable Care Team Providers Care Wet End Helper Name Role Phone Migration, Doctor Unavailable Unavailable PROBLEMS Type Condition ICD9-CM Code NAY76-RY Code Onset Dates Condition S tatus SNOMED Code Problem Carpal tunnel syndrome 354.0 Active [id number] Problem Goiter, unspecified 240.9 Active 0707173 ALLERGIES No Information ENCOUNTERS Encounter Location Date Diagnosis [place] [address] [address] Sep, [facility] [address] [address] 30 Apr, 2018 Acute nasopharyngitis J00 [place] [address] [address] May, Bronchitis J40 [place] [address] [address] 20 Jan, 2017 Encounter for immunization Z 23 [place] [address] [address] Nov, Daily headache R51 ; Elevate d blood pressure reading R03.0 ; Screening for diabetes mellitus (DM) Z13.1 and Screening for lipid disorders Z13.220 [facility] [address] [address] May, Dysuria R30.0 [place] [address] [address] Aug, Hair loss L65.9 [place] [address] [address] Aug, Hair loss L65.9 [place] [address] [address] Aug, [facility] [address] [id number] [address] [place] [address], [place] [address] Aug, Arm maxwell M79.603 [facility] [address] [id number] [address] [place] [address], [place] [address] Nov, [facility] [address] [id number] [address] [place] [address], [place] [address] Nov, [facility] [address] [id number] [address] [place] [address], [place] [address] Aug, [facility] [address] [id number] [address] [place] [address], [place] [address] Aug, [facility] [address] [id number] [address] [place] [address], [place] [address] Jun, [facility] [address] [id number] [address] [place] [address], [place] [address] Jun, [facility] [address] [id number] [address] [place] [address], [place] [address] Jun, [facility] [address] [id number] [address] [place] [address], [place] [address] Jun, [facility] [address] [id number] [address] [place] [address], [place] [address] Jun, [facility] [address] [id number] [address] [place] [address], [place] [address] Feb, [facility] [address] [id number] [address] [place] [address], [place] [address] Feb, [facility] [address] [id number] [address] [place] [address], [place] [address] Feb, [facility] [address] [id number] [address] [place] [address], [place] [address] Feb, [facility] [address] [id number] [address] [place] [address], [place] [address] Jan, [facility] [address] [id number] [address] [place] [address], [place] [address] Jan, [facility] [address] [id number] [address] [place] [address], [place] [address] Jan, [facility] [address] [id number] [address] [place] [address], [place] [address] Jan, [facility] [address] [id number] [address] [place] [address], [place] [address] Nov, [facility] [address] [id number] [address] [place] [address], [place] [address] Nov, [facility] [address] [id number] [address] [place] [address], [place] [address] Oct, [facility] [address] [id number] [address] [place] [address], [place] [address] Oct, [facility] [address] [id number] [address] [place] [address], [place] [address] Sep, [facility] [address] [id number] [address] [place] [address], [place] [address] Sep, [facility] [address] [id number] [address] [place] [address], [place] [address] Aug, [facility] [address] [id number] [address] [place] [address], [place] [address] Aug, [facility] [address] [id number] [address] [place] [address], [place] [address] Jun, [facility] [address] [id number] [address] [place] [address], [place] [address] Jun, [facility] [address] [id number] [address] [place] [address], [place] [address] Jun, [facility] [address] [id number] [address] [place] [address], [place] [address] Jun, [facility] [address] [id number] [address] [place] [address], [place] [address] Jun, [facility] [address] [id number] [address] [place] [address], [place] [address] Jun, [facility] [address] [id number] [address] [place] [address], [place] [address] Jun, [facility] [address] [id number] [address] [place] [address], [place] [address] Jun, [facility] [address] [id number] [address] [place] [address], [place] [address] Mar, [facility] [address] [id number] [address] [place] [address], [place] [address] Mar, [facility] [address] [id number] [address] [place] [address], [place] [address] Mar, [facility] [address] [id number] [address] [place] [address], [place] [address] Mar, [facility] [address] [id number] [address] [place] [address], [place] [address] Mar, [facility] [address] [id number] [address] [place] [address], [place] [address] Feb, [facility] [address] [id number] [address] [place] [address], [place] [address] Feb, [facility] [address] [id number] [address] [place] [address], [place] [address] Feb, [facility] [address] [id number] [address] [place] [address], [place] [address] Sep, [facility] [address] [id number] [address] [place] [address], [place] [address] Mar, [facility] [address] [id number] [address] [place] [address], [place] [address] Aug, [facility] [address] [id number] [address] [place] [address], [place] [address] Jun, [facility] [address] [id number] [address] [place] [id number] 13 Aug, 2010 [facility] [place] [address] [facility] [id number] [address] [place] [id number] 14 Nov, 2009 [facility] [place] [address] [facility] [id number] [address] [place] [phone] Jul, [facility] [place] [address] [facility] [id number] [address] [place] [phone] Jun, IMMUNIZATIONS No Known Immunizations SOCIAL HISTORY Never Assessed REASON FOR VISIT [place] [place] VITAL SIGNS MEDICATIONS Unknown Medications RESULTS No Results PROCEDURES No Known procedures INSTRUCTIONS MEDICATIONS ADMINISTERED No Known Medications MEDICAL (GENERAL) HISTORY Type Description Date Surgical History section x2
--- OUTSIDE RECORDS SUMMARY | 2020-02-03 09:47 | XMS REPORT ---
Author Author Milly EUCEDA Organization [employer] Address Unknown Phone Unavailable Care Team Providers Care Transportation Officer Name Role Phone VARGAS EUCEDA CP Unavailable Allergies No Known Allergies Problems Problem Type Condition Code Onset Dates Condition Statu s Problem Unspecified otalgia 388.70 Active Problem Surveillance of previously prescribed in trauterine contraceptive device V25.42 Active Problem Leukorrhea, not specified as infective 623.5 Active Problem Enlargement of lymph nodes 785.6 A ctive Problem Headache 784.0 Active Problem Intestinal infection due to other organism, NEC 008.8 Active Problem Goiter, unspecified 240.9 Active Problem Abdominal pain, right upper quadrant 789.01 Active Problem Other abnormal blood chemistry 790.6 Active Problem Carpal tunnel syndrome 354.0 Activ e Assessment Hair loss L65.9 Active Problem Chest pain, unspecified 786.50 Acti ve Problem Abnormal weight gain 783.1 Active Problem Other ganglion and cyst of synovium, tendon, and bursa 727.49 Active Problem Palpitations 785.1 Active Problem Unspecified disorder of skin and subcutaneous tissue 7 09.9 Active Problem Counseling on substance use and abuse V65.42 Active Problem Contact dermatitis and other eczema, due to unspecifie d cause 692.9 Active Medications No Known Medications Procedures Procedure Coding System Code Date VENIPUNCT, ROUTINE* CPT-4 16799 Sep 02, 2015 ASSAY THYROID STIM HORMONE CPT-4 30390 Aug Results Name Result Date Reference Range Unit Abnormali ty Flag ROUTINE VENIPUNCTURE Summary Purpose [employer]Clinical[employer] Submission
--- OUTSIDE RECORDS SUMMARY | 2020-02-03 09:47 | XMS REPORT ---
Author Author Milly WELCH Organization [facility] Address [address] [place] [address] Care Team Providers Care Cloud Developer Name Role Phone GAYATHRI WELCH Unavailable PROBLEMS Type Condition ICD9-CM Code SXV88-PI Code Onset Dates Condition S tatus SNOMED Code Problem Goiter, unspecified 240.9 Active 6282630 Problem Carpal tunnel syndrome 354.0 Active 20576213 ALLERGIES No Known Allergies ENCOUNTERS Encounter Location Date Diagnosis [place] [address] [address] May, Bronchitis J40 [place] [address] [address] Jan, Encounter for immunization Z 23 [place] [address] [address] Nov, Daily headache R51 ; Elevate d blood pressure reading R03.0 ; Screening for diabetes mellitus (DM) Z13.1 and Screening for lipid disorders Z13.220 [facility] [address] [place] [id number] [address] [place] [address] May, Dysuria R30.0 [facility] [address] [place] [id number] [address] [place] [address] Aug, Hair loss L65.9 [facility] [address] [place] [id number] [address] [place] [address] Aug, Hair loss L65.9 [place] [address] [place] [id number] [address] [place] [address] Aug, [facility] [address] [place] [id number] [address] [place] [address] Aug, Arm pain M79.603 [facility] [address] [id number] [address] [place] [address], [place] [address] 14 Nov, 2014 [facility] [address] [id number] [address] [place] [address], [place] [address] Nov, [facility] [address] [id number] [address] [place] [address], [place] [address] Aug, [facility] [address] [id number] [address] [place] [address], [place] [address] Aug, [facility] [address] [id number] [address] [place] [address], [place] [address] Jun, [facility] [address] [id number] [address] [place] [address], [place] [address] Jun, [facility] [address] [id number] [address] [place] [address], [place] [address] Jun, [facility] [address] [id number] [address] [place] [address], [place] [address] Jun, [facility] [address] [id number] [address] [place] [address], [place] [address] Jun, [facility] [address] [id number] [address] [place] [address], [place] [address] Feb, [facility] [address] [id number] [address] [place] [address], [place] [address] Feb, [facility] [address] [id number] [address] [place] [phone] Feb, [facility] [address] [id number] [address] [place] [address], [place] [address] Feb, [facility] [address] [id number] [address] [place] [address], [place] [address] Jan, [facility] [address] [id number] [address] [place] [id number] Jan, [facility] [address] [id number] [address] [place] [address] Jan, [facility] [address] [id number] [address] [place] [address], [place] [address] Jan, [facility] [address] [id number] [address] [place] [address], [place] [address] Nov, [facility] [address] [id number] [address] [place] [address], [place] [address] Nov, [facility] [address] [id number] [address] [place] [address], [place] [address] Oct, [facility] [address] [id number] [address] [place] [address], [place] [address] Oct, [facility] [address] [id number] [address] [place] [address], [place] [address] Sep, [facility] [address] [id number] [address] [place] [address], [place] [address] Sep, [facility] [address] [id number] [address] [place] [address], [place] [address] Aug, [facility] [address] [id number] [address] [place] [address], [place] [address] Aug, [facility] [address] [id number] [address] [place] [address], [place] [address] Jun, [facility] [address] [id number] [address] [place] [address], [place] [address] Jun, [facility] [address] [id number] [address] [place] [address], [place] [address] Jun, [facility] [address] [id number] [address] [place] [address], [place] [address] Jun, [facility] [address] [id number] [address] [place] [address], [place] [address] Jun, [facility] [address] [id number] [address] [place] [address], [place] [address] Jun, [facility] [address] [id number] [address] [place] [address], [place] [address] Jun, [facility] [address] [id number] [address] [place] [address], [place] [address] Jun, [facility] [address] [id number] [address] [place] [address], [place] [address] Mar, [facility] [address] [id number] [address] [place] [address], [place] [address] Mar, [facility] [address] [id number] [address] [place] [address], [place] [address] Mar, [facility] [address] [id number] [address] [place] [address], [place] [address] Mar, [facility] [address] [id number] [address] [place] [address], [place] [address] Mar, [facility] [address] [id number] [address] [place] [address], [place] [address] Feb, [facility] [address] [id number] [address] [place] [address], [place] [address] Feb, [facility] [address] [id number] [address] [place] [address], [place] [address] Feb, [facility] [address] [id number] [address] [place] [address], [place] [address] Sep, [facility] [address] [id number] [address] [place] [address], [place] [address] Mar, [facility] [address] [id number] [address] [place] [address], [place] [address] Aug, [facility] [address] [id number] [address] [place] [address], [place] [address] Jun, [facility] [address] [id number] [address] [place] [address], [place] [address] Aug, [facility] [address] [id number] [address] [place] [address], [place] [address] Nov, [facility] [address] [facility] [id number] [address] [place] [address] Jul, [facility] [address] [facility] [id number] [address] [place] [address] Jun, IMMUNIZATIONS No Known Immunizations SOCIAL HISTORY Never Assessed REASON FOR VISIT chest congestion, ear popping from on going ear infection--Payton Ramirez MA PLAN OF CARE VITAL SIGNS Height 67 in 2017-05-31 Weight 217.8 lbs 2017-05-31 Temperature 98.3 degrees Fahrenheit 2017-05-31 Heart Rate 88 bpm 2017-05-31 Respiratory Rate 20 2017-05-31 BMI 34.11 kg/m2 2017-05-31 Blood pressure systolic 132 mmHg 2017-05-31 Blood pressure diastolic 88 mmHg 2017-05-31 MEDICATIONS Medication Instructions Dosage Frequency Start Date End Date Duration S tatus Mirena 20 mcg/24 hr Mar, Active Zithromax Z-Ramon 250 MG Orally Once a day 2 tablets on the first day, then 1 tablet daily for 4 days 24h May, May, 5 day(s) Acti ve PredniSONE 20 mg Orally Once a day 2 tablets 24h May, May, 05 days Active RESULTS No Results PROCEDURES No Known procedures INSTRUCTIONS MEDICATIONS ADMINISTERED No Known Medications MEDICAL (GENERAL) HISTORY Type Description Date Surgical History section x2
--- OUTSIDE RECORDS SUMMARY | 2020-02-03 09:47 | XMS REPORT ---
Author Author Milly EUCEDA [facility] [employer] Address Unknown Phone Unavailable Care Team Providers Care Online Journalist Name Role Phone VARGAS EUCEDA CP Unavailable Allergies, Adverse Reactions, Alerts Substance Reaction Event Type N.K.D.A. Info Not Available Non Drug Allergy Problems Problem Type Condition Code Onset Dates [...] Carpal tunnel syndrome 354.0 Activ e Assessment Arm pain M79.603 Active Problem Chest pain, unspecified 786.50 Acti [...] to unspecifie d cause 692.9 Active Medications Medication Code System Code Instructions Start Date End Date Status Dosage Mirena [facility] [address]-14 20 mcg/24 hr Apr 16, 2012 not defined Gabapentin [facility] [address]-63 100 MG Orally 3 times a day Aug 30, 201 6 1 tablet Procedures Procedure Coding System Code Date COMPLETE CBC W/AUTO DIFF WBC CPT-4 70584 Aug 30, 2015 VENIPUNCT, ROUTINE* CPT-4 64236 Aug 30, 2015 C-REACTIVE PROTEIN CPT-4 82092 Aug 30, 2015 Office Visit, Est Pt., Level 3 CPT-4 34927 J 2015 Vital Signs Date/Time: Aug 30, 2015 Temperature 98.0 F Weight 195 lbs Height 67 in BMI 30.54 Index Blood Pressure Diastolic 110 mmHg Blood Pressure Systolic 160 mmHg Cardiac Monitoring Heart Rate 64 bpm Results Name Result Date Reference Range Unit Abnormali ty Flag ROUTINE VENIPUNCTURE Summary Purpose eClinicalWorks Submission
--- OUTSIDE RECORDS SUMMARY | 2020-02-03 09:47 | XMS REPORT ---
Author Author Milly Lopez Doctor Organization [facility] Address Unknown Phone Unavailable Care Team Providers Care Cocoa Milling Machine Operator Name Role Phone Migration, Doctor Unavailable Unavailable PROBLEMS Type Condition ICD9-CM Code JBC12-ZO Code Onset Dates Condition S tatus SNOMED Code Problem Carpal tunnel syndrome 354.0 Active 24228578 Problem Goiter, unspecified 240.9 Active 0538724 ALLERGIES No Information ENCOUNTERS Encounter Location Date Diagnosis [place] [address] [address] Sep, [facility] [address] [address] 30 Apr, 2018 Acute nasopharyngitis J00 [place] [address] [address] May, Bronchitis J40 [place] [address] [address] 20 Jan, 2017 Encounter for immunization Z 23 [place] [address] [address] Nov, Daily headache R51 ; Elevate d blood pressure reading R03.0 ; Screening for diabetes mellitus (DM) Z13.1 and Screening for lipid disorders Z13.220 [facility] [address] [address] May, Dysuria R30.0 [place] [address] [address] Aug, Hair loss L65.9 [place] [address] [address] Aug, Hair loss L65.9 [place] [address] [address] Aug, [facility] [address] [id number] [address] [place] [address], [place] [address] Aug, Arm maxwell M79.603 [facility] [address] [id number] [address] [place] [address], [place] [address] Nov, [facility] [address] [id number] [address] [place] [address], [place] [address] Nov, [facility] [address] [id number] [address] [place] [address], [place] [address] Aug, [facility] [address] [id number] [address] [place] [address], [place] [address] Aug, [facility] [address] [id number] [address] [place] [address], [place] [address] Jun, [facility] [address] [id number] [address] [place] [address], [place] [address] Jun, [facility] [address] [id number] [address] [place] [address], [place] [address] Jun, [facility] [address] [id number] [address] [place] [address], [place] [address] Jun, [facility] [address] [id number] [address] [place] [address], [place] [address] Jun, [facility] [address] [id number] [address] [place] [address], [place] [address] Feb, [facility] [address] [id number] [address] [place] [address], [place] [address] Feb, [facility] [address] [id number] [address] [place] [address], [place] [address] Feb, [facility] [address] [id number] [address] [place] [address], [place] [address] Feb, [facility] [address] [id number] [address] [place] [address], [place] [address] Jan, [facility] [address] [id number] [address] [place] [address], [place] [address] Jan, [facility] [address] [id number] [address] [place] [address], [place] [address] Jan, [facility] [address] [id number] [address] [place] [address], [place] [address] Jan, [facility] [address] [id number] [address] [place] [address], [place] [address] Nov, [facility] [address] [id number] [address] [place] [address], [place] [address] Nov, [facility] [address] [id number] [address] [place] [address], [place] [address] Oct, [facility] [address] [id number] [address] [place] [address], [place] [address] Oct, [facility] [address] [id number] [address] [place] [address], [place] [address] Sep, [facility] [address] [id number] [address] [place] [address], [place] [address] Sep, [facility] [address] [id number] [address] [place] [address], [place] [address] Aug, [facility] [address] [id number] [address] [place] [address], [place] [address] Aug, [facility] [address] [id number] [address] [place] [address], [place] [address] Jun, [facility] [address] [id number] [address] [place] [address], [place] [address] Jun, [facility] [address] [id number] [address] [place] [address], [place] [address] Jun, [facility] [address] [id number] [address] [place] [address], [place] [address] Jun, [facility] [address] [id number] [address] [place] [address], [place] [address] Jun, [facility] [address] [id number] [address] [place] [address], [place] [address] Jun, [facility] [address] [id number] [address] [place] [address], [place] [address] Jun, [facility] [address] [id number] [address] [place] [address], [place] [address] Jun, [facility] [address] [id number] [address] [place] [address], [place] [address] Mar, [facility] [address] [id number] [address] [place] [address], [place] [address] Mar, [facility] [address] [id number] [address] [place] [address], [place] [address] Mar, [facility] [address] [id number] [address] [place] [address], [place] [address] Mar, [facility] [address] [id number] [address] [place] [address], [place] [address] Mar, [facility] [address] [id number] [address] [place] [address], [place] [address] Feb, [facility] [address] [id number] [address] [place] [address], [place] [address] Feb, [facility] [address] [id number] [address] [place] [address], [place] [address] Feb, [facility] [address] [id number] [address] [place] [address], [place] [address] Sep, [facility] [address] [id number] [address] [place] [address], [place] [address] Mar, [facility] [address] [id number] [address] [place] [address], [place] [address] Aug, [facility] [address] [id number] [address] [place] [address], [place] [address] Jun, [facility] [address] [id number] [address] [place] [address] 13 Aug, 2010 [facility] [address] [facility] [id number] [address] [place] [address] 14 Nov, 2009 [facility] [address] [facility] [id number] [address] [place] [address] Jul, [facility] [address] [facility] [id number] [address] [place] [address] Jun, IMMUNIZATIONS No Known Immunizations SOCIAL HISTORY Never Assessed REASON FOR VISIT [facility] PLAN OF CARE VITAL SIGNS MEDICATIONS Unknown Medications RESULTS No Results PROCEDURES No Known procedures INSTRUCTIONS MEDICATIONS ADMINISTERED No Known Medications MEDICAL (GENERAL) HISTORY Type Description Date Surgical History section x2
--- OUTSIDE RECORDS SUMMARY | 2020-02-03 09:47 | XMS REPORT ---
Author Author Milly Montez Organization [facility] Address [address] [place] [address] Care Team Providers Care Stove Mounter Name Role Phone HERRERA Montez Unavailable PROBLEMS Type Condition ICD9-CM Code OMT01-BD Code Onset Dates Condition S tatus SNOMED Code Problem Carpal tunnel syndrome 354.0 Active 03216895 Problem Goiter, unspecified 240.9 Active 1193679 ALLERGIES No Information ENCOUNTERS Encounter Location Date Diagnosis [place] [address] [address] December, Superficial acne vulgaris L7 0.0 [facility] [address] [address] Sep, [facility] [address] [address] 30 Apr, 2018 Acute nasopharyngitis J00 [place] [address] [address] May, Bronchitis J40 [place] [address] [address] Jan, Encounter for immunization Z 23 [place] [address] [address] Nov, Daily headache R51 ; Elevate d blood pressure reading R03.0 ; Screening for diabetes mellitus (DM) Z13.1 and Screening for lipid disorders Z13.220 [facility] [address] [place] [id number] [place] [address] May, Dysuria R30.0 [facility] [address] [address] Aug, Hair loss L65.9 [facility] [address] [id number] [address] [place] [address], [place] [address] Aug, Hair loss L65.9 [facility] [address] [id number] [address] [place] [address], [place] [address] Aug, [facility] [address] [id number] [address] [place] [address], [place] [address] Aug, Arm pain M79.603 [facility] [address] [id number] [address] [place] [address], [place] [address] Nov, [facility] [address] [id number] [address] [place] [address], [place] [address] Nov, [facility] [address] [id number] [address] [place] [address], [place] [address] Aug, [facility] [address] [id number] [address] [place] [address] Aug, [facility] [address] [id number] [address] [place] [address] Jun, [facility] [address] [id number] [address] [place] [address] Jun, [facility] [address] [id number] [address] [place] [address] Jun, [facility] [address] [id number] [address] [place] [address] Jun, [facility] [address] [id number] [address] [place] [address], [place] [address] Jun, [facility] [address] [id number] [address] [place] [address], [place] [address] Feb, [facility] [address] [id number] [address] [place] [address] Feb, [facility] [address] [id number] [address] [place] [address] Feb, [facility] [address] [id number] [address] [place] [address], [place] [address] Feb, [facility] [address] [id number] [address] [place] [address], [place] [address] Jan, [facility] [address] [id number] [address] [place] [address], [place] [address] Jan, [facility] [address] [id number] [address] [place] [address], [place] [address] Jan, [facility] [address] [id number] [address] [place] [address], [place] [address] Jan, [facility] [address] [id number] [address] [place] [address], [place] [address] Nov, [facility] [address] [id number] [address] [place] [address], [place] [address] Nov, [facility] [address] [id number] [address] [place] [address], [place] [address] Oct, [facility] [address] [id number] [address] [place] [address], [place] [address] Oct, [facility] [address] [id number] [address] [place] [address], [place] [address] Sep, [facility] [address] [id number] [address] [place] [address], [place] [address] Sep, [facility] [address] [id number] [address] [place] [address], [place] [address] Aug, [facility] [address] [id number] [address] [place] [address], [place] [address] Aug, [facility] [address] [id number] [address] [place] [address], [place] [address] Jun, [facility] [address] [id number] [address] [place] [address], [place] [address] Jun, [facility] [address] [id number] [address] [place] [address], [place] [address] Jun, [facility] [address] [id number] [address] [place] [address], [place] [address] Jun, [facility] [address] [id number] [address] [place] [address], [place] [address] Jun, [facility] [address] [id number] [address] [place] [address], [place] [address] Jun, [facility] [address] [id number] [address] [place] [address], [place] [address] Jun, [facility] [address] [id number] [address] [place] [address], [place] [address] Jun, [facility] [address] [id number] [address] [place] [address], [place] [address] Mar, [facility] [address] [id number] [address] [place] [address], [place] [address] Mar, [facility] [address] [id number] [address] [place] [address], [place] [address] Mar, [facility] [address] [id number] [address] [place] [address], [place] [address] Mar, [facility] [address] [id number] [address] [place] [address], [place] [address] Mar, [facility] [address] [id number] [address] [place] [address], [place] [address] Feb, [facility] [address] [id number] [address] [place] [address], [place] [address] Feb, [facility] [address] [id number] [address] [place] [address], [place] [address] Feb, [facility] [address] [id number] [address] [place] [address], [place] [address] Sep, [facility] [address] [id number] [address] [place] [address], [place] [address] Mar, [facility] [address] [facility] [id number] [address] [place] [address] Aug, [facility] [address] [facility] [id number] [address] [place] [address] Jun, [facility] [address] [facility] [id number] [address] [place] [address] Aug, [facility] [address] [facility] [id number] [address] [place] [address] Nov, [facility] [address] [facility] [id number] [address] [place] [address] Jul, [facility] [address] [facility] [id number] [address] [place] [address] Jun, IMMUNIZATIONS No Known Immunizations SOCIAL HISTORY Never Assessed REASON FOR VISIT PLAN OF CARE VITAL SIGNS Height 67 in 2014-09-16 Weight 194.6 lbs 2014-09-16 Temperature 97.9 degrees Fahrenheit 2014-09-16 Heart Rate 80 bpm 2014-09-16 Respiratory Rate 20 2014-09-16 Blood pressure systolic 122 mmHg 2014-09-16 Blood pressure diastolic 80 mmHg 2014-09-16 MEDICATIONS Unknown Medications RESULTS No Results PROCEDURES No Known procedures INSTRUCTIONS MEDICATIONS ADMINISTERED No Known Medications MEDICAL (GENERAL) HISTORY Type Description Date Surgical History section x2
--- OUTSIDE RECORDS SUMMARY | 2020-02-03 09:47 | XMS REPORT ---
Author Author Milly LOJA Organization [employer] Address Unknown Phone Unavailable Care Team Providers Care Cold Rolling Supervisor Name Role Phone CODI LOJA CP Unavailable Allergies, Adverse Reactions, Alerts Substance [...] Carpal tunnel syndrome 354.0 Activ e Assessment Dysuria R30.0 Active Problem Chest pain, unspecified 786.50 Acti [...] Start Date End Date Status Dosage Mirena NDC 0 20 mcg/24 hr Apr 16, 2012 not defined Macrobid NDC [address]-68 100 MG Orally every 12 hrs Jun 06, 2 016 Jun 13, 2016 1 capsule with food Procedures Procedure Coding System Code Date Office Visit, Est Pt., Level 3 CPT-[address] 2015 URINALYSIS, AUTO, W/O SCOPE CPT-4 45323 Jun 06, 2016 Vital Signs Date/Time: Jun 06, 2016 Cardiac Monitoring Heart Rate 84 bpm Weight 204.6 lbs Height 67 in BMI 32.04 Index Blood Pressure Diastolic 82 mmHg Blood Pressure Systolic 124 mmHg Results Name Result Date Reference Range Unit Abnormali ty Flag UA LONG DIP (IN HOUSE) ----TAMMIE 1+ 20160606 ----NIT negative 20160606 ----Exp date [id number] ----Lot # [id number] ----SG 1.015 20160606 ----KET negative 20160606 ----SHIMA negative 20160606 ----GLU negative 20160606 ----Odor strong 20160606 ----pH 6.5 20160606 ----BLO 1+ 20160606 ----URO 0.2 20160606 ----Protein negative 20160606 ----Lot # [id number] ----Exp date [id number] ----Clarity cloudy 20160606 ----Color yellow [id number] Summary Purpose [employer] Submission
--- OUTSIDE RECORDS SUMMARY | 2020-02-03 09:47 | XMS REPORT ---
Author Author Milly Lopez Doctor Organization [facility] Address Unknown Phone Unavailable Care Team Providers Care Cushion Filler Name Role Phone Migration, Doctor Unavailable Unavailable PROBLEMS Type Condition ICD9-CM Code QGC19-UI Code Onset Dates Condition S tatus SNOMED Code Problem Carpal tunnel syndrome 354.0 Active 65687701 Problem Goiter, unspecified 240.9 Active 9593210 ALLERGIES No Information ENCOUNTERS Encounter Location Date Diagnosis [place] [address] [address] Sep, [facility] [address] [address] 30 Apr, 2018 Acute nasopharyngitis J00 [place] [address] [address] May, Bronchitis J40 [place] [address] [address] 20 Jan, 2017 Encounter for immunization Z 23 [place] [address] [address] Nov, Daily headache R51 ; Elevate d blood pressure reading R03.0 ; Screening for diabetes mellitus (DM) Z13.1 and Screening for lipid disorders Z13.220 [facility] [address] [address] May, Dysuria R30.0 [place] [address] [address] Aug, Hair loss L65.9 [place] [address] [address] Aug, Hair loss L65.9 [place] [address] [address] Aug, [facility] [address] [id number] [address] [place] [address], [place] [address] Aug, Arm maxwell M79.603 [facility] [address] [id number] [address] [place] [address], [place] [address] Nov, [facility] [address] [id number] [address] [place] [address], [place] [address] Nov, [facility] [address] [id number] [address] [place] [address], [place] [address] Aug, [facility] [address] [id number] [address] [place] [address], [place] [address] Aug, [facility] [address] [id number] [address] [place] [address], [place] [address] Jun, [facility] [address] [id number] [address] [place] [address], [place] [address] Jun, [facility] [address] [id number] [address] [place] [address], [place] [address] Jun, [facility] [address] [id number] [address] [place] [address], [place] [address] Jun, [facility] [address] [id number] [address] [place] [address], [place] [address] Jun, [facility] [address] [id number] [address] [place] [address], [place] [address] Feb, [facility] [address] [id number] [address] [place] [address], [place] [address] Feb, [facility] [address] [id number] [address] [place] [address], [place] [address] Feb, [facility] [address] [id number] [address] [place] [address], [place] [address] Feb, [facility] [address] [id number] [address] [place] [address], [place] [address] Jan, [facility] [address] [id number] [address] [place] [address], [place] [address] Jan, [facility] [address] [id number] [address] [place] [address], [place] [address] Jan, [facility] [address] [id number] [address] [place] [address], [place] [address] Jan, [facility] [address] [id number] [address] [place] [address], [place] [address] Nov, [facility] [address] [id number] [address] [place] [address], [place] [address] Nov, [facility] [address] [id number] [address] [place] [address], [place] [address] Oct, [facility] [address] [id number] [address] [place] [address], [place] [address] Oct, [facility] [address] [id number] [address] [place] [address], [place] [address] Sep, [facility] [address] [id number] [address] [place] [address], [place] [address] Sep, [facility] [address] [id number] [address] [place] [address], [place] [address] Aug, [facility] [address] [id number] [address] [place] [address], [place] [address] Aug, [facility] [address] [id number] [address] [place] [address], [place] [address] Jun, [facility] [address] [id number] [address] [place] [address], [place] [address] Jun, [facility] [address] [id number] [address] [place] [address], [place] [address] Jun, [facility] [address] [id number] [address] [place] [address], [place] [address] Jun, [facility] [address] [id number] [address] [place] [address], [place] [address] Jun, [facility] [address] [id number] [address] [place] [address], [place] [address] Jun, [facility] [address] [id number] [address] [place] [address], [place] [address] Jun, [facility] [address] [id number] [address] [place] [address], [place] [address] Jun, [facility] [address] [id number] [address] [place] [address], [place] [address] Mar, [facility] [address] [id number] [address] [place] [address], [place] [address] Mar, [facility] [address] [id number] [address] [place] [address], [place] [address] Mar, [facility] [address] [id number] [address] [place] [address], [place] [address] Mar, [facility] [address] [id number] [address] [place] [address], [place] [address] Mar, [facility] [address] [id number] [address] [place] [address], [place] [address] Feb, [facility] [address] [id number] [address] [place] [address], [place] [address] Feb, [facility] [address] [id number] [address] [place] [address], [place] [address] Feb, [facility] [address] [id number] [address] [place] [address], [place] [address] Sep, [facility] [address] [id number] [address] [place] [address], [place] [address] Mar, [facility] [address] [id number] [address] [place] [address], [place] [address] Aug, [facility] [address] [id number] [address] [place] [address], [place] [address] Jun, [facility] [address] [id number] [address] [place] [address] 13 Aug, 2010 [facility] [address] [facility] [id number] [address] [place] [address] 14 Nov, 2009 [facility] [address] [facility] [id number] [address] [place] [address] Jul, [facility] [address] [facility] [id number] [address] [place] [address] Jun, IMMUNIZATIONS No Known Immunizations SOCIAL HISTORY Never Assessed REASON FOR VISIT EMR-[facility] PLAN OF CARE VITAL SIGNS MEDICATIONS Medication Instructions Dosage Frequency Start Date End Date Duration S tatus Amoxicillin 500 mg 1 capsule by Oral route 3 times per day for 10 days Feb, Active Augmentin 875-125 mg 1 Tablet by Po route 2 times per day take with food. Aug, Active PredniSONE 20 mg 2 tablet by Oral route 1 time per day for 5 day(s) Sep, Active Mirena 20 mcg/24 hr Mar, Active phentermine 15 mg 1 capsule by Oral route 1 time per d ay for 30 day(s) Sep, Active RESULTS No Results PROCEDURES No Known procedures INSTRUCTIONS MEDICATIONS ADMINISTERED No Known Medications MEDICAL (GENERAL) HISTORY Type Description Date Surgical History section x2
--- OUTSIDE RECORDS SUMMARY | 2020-02-03 09:47 | XMS REPORT ---
Author Author Milly Lopez Doctor Organization [facility] Address Unknown Phone Unavailable Care Team Providers Care Metallurgical Tester Name Role Phone Migration, Doctor Unavailable Unavailable PROBLEMS Type Condition ICD9-CM Code QVS93-HT Code Onset Dates Condition S tatus SNOMED Code Problem Carpal tunnel syndrome 354.0 Active [id number] Problem Goiter, unspecified 240.9 Active [id number] ALLERGIES No Information ENCOUNTERS Encounter Location Date Diagnosis [place] [address] [address] Sep, [facility] [address] [address] 30 Apr, 2018 Acute nasopharyngitis J00 [place] [address] [address] May, Bronchitis J40 [place] [address] [address] 20 Jan, 2017 Encounter for immunization Z 23 [place] [address] [address] Nov, Daily headache R51 ; Elevate d blood pressure reading R03.0 ; Screening for diabetes mellitus (DM) Z13.1 and Screening for lipid disorders Z13.220 [facility] [address] [address] May, Dysuria R30.0 [place] [address] [address] Aug, Hair loss L65.9 [place] [address] [address] Aug, Hair loss L65.9 [place] [address] [address] Aug, [facility] [address] [id number] [address] [place] [address], [place] [address] Aug, Arm maxwell M79.603 [facility] [address] [id number] [address] [place] [address], [place] [address] Nov, [facility] [address] [id number] [address] [place] [address], [place] [address] Nov, [facility] [address] [id number] [address] [place] [address], [place] [address] Aug, [facility] [address] [id number] [address] [place] [address], [place] [address] Aug, [facility] [address] [id number] [address] [place] [address], [place] [address] Jun, [facility] [address] [id number] [address] [place] [address], [place] [address] Jun, [facility] [address] [id number] [address] [place] [address], [place] [address] Jun, [facility] [address] [id number] [address] [place] [address], [place] [address] Jun, [facility] [address] [id number] [address] [place] [address], [place] [address] Jun, [facility] [address] [id number] [address] [place] [address], [place] [address] Feb, [facility] [address] [id number] [address] [place] [address], [place] [address] Feb, [facility] [address] [id number] [address] [place] [address], [place] [address] Feb, [facility] [address] [id number] [address] [place] [address], [place] [address] Feb, [facility] [address] [id number] [address] [place] [address], [place] [address] Jan, [facility] [address] [id number] [address] [place] [address], [place] [address] Jan, [facility] [address] [id number] [address] [place] [address], [place] [address] Jan, [facility] [address] [id number] [address] [place] [address], [place] [address] Jan, [facility] [address] [id number] [address] [place] [address], [place] [address] Nov, [facility] [address] [id number] [address] [place] [address], [place] [address] Nov, [facility] [address] [id number] [address] [place] [address], [place] [address] Oct, [facility] [address] [id number] [address] [place] [address], [place] [address] Oct, [facility] [address] [id number] [address] [place] [address], [place] [address] Sep, [facility] [address] [id number] [address] [place] [address], [place] [address] Sep, [facility] [address] [id number] [address] [place] [address], [place] [address] Aug, [facility] [address] [id number] [address] [place] [address], [place] [address] Aug, [facility] [address] [id number] [address] [place] [address], [place] [address] Jun, [facility] [address] [id number] [address] [place] [address], [place] [address] Jun, [facility] [address] [id number] [address] [place] [address], [place] [address] Jun, [facility] [address] [id number] [address] [place] [address], [place] [address] Jun, [facility] [address] [id number] [address] [place] [address], [place] [address] Jun, [facility] [address] [id number] [address] [place] [address], [place] [address] Jun, [facility] [address] [id number] [address] [place] [address], [place] [address] Jun, [facility] [address] [id number] [address] [place] [address], [place] [address] Jun, [facility] [address] [id number] [address] [place] [address], [place] [address] Mar, [facility] [address] [id number] [address] [place] [address], [place] [address] Mar, [facility] [address] [id number] [address] [place] [address], [place] [address] Mar, [facility] [address] [id number] [address] [place] [address], [place] [address] Mar, [facility] [address] [id number] [address] [place] [address], [place] [address] Mar, [facility] [address] [id number] [address] [place] [address], [place] [address] Feb, [facility] [address] [id number] [address] [place] [address], [place] [address] Feb, [facility] [address] [id number] [address] [place] [address], [place] [address] Feb, [facility] [address] [id number] [address] [place] [address], [place] [address] Sep, [facility] [address] [id number] [address] [place] [address], [place] [address] Mar, [facility] [address] [id number] [address] [place] [address], [place] [address] Aug, [facility] [address] [id number] [address] [place] [address], [place] [address] Jun, [facility] [address] [id number] [address] [place] [address] 13 Aug, 2010 [facility] [address] [facility] [id number] [address] [place] [id number] 14 Nov, 2009 [facility] [address] [facility] [id number] [address] [place] [address] Jul, [facility] [address] [facility] [id number] [address] [place] [address] Jun, IMMUNIZATIONS No Known Immunizations SOCIAL HISTORY Never Assessed REASON FOR VISIT EMR-[facility] PLAN OF CARE VITAL SIGNS MEDICATIONS Unknown Medications RESULTS No Results PROCEDURES No Known procedures INSTRUCTIONS MEDICATIONS ADMINISTERED No Known Medications MEDICAL (GENERAL) HISTORY Type Description Date Surgical History section x2
--- OUTSIDE RECORDS SUMMARY | 2020-02-03 09:47 | XMS REPORT ---
Author Author Milly EUCEDA Organization [employer] Address Unknown Phone Unavailable Care Team Providers Care Technology Lab Teacher Name Role Phone VARGAS EUCEDA CP Unavailable [...] Problem Carpal tunnel syndrome 354.0 Activ e Problem Chest pain, unspecified 786.50 Acti ve [...] cause 692.9 Active Medications No Known Medications Results No Known Results Summary Purpose [employer] Submission
--- OUTSIDE RECORDS SUMMARY | 2020-02-03 09:47 | XMS REPORT ---
Author Author Milly EUCEDA Organization [employer] Address Unknown Phone Unavailable Care Team Providers Care Mining Manager Name Role Phone VARGAS EUCEDA CP Unavailable [...]
--- OUTSIDE RECORDS SUMMARY | 2020-02-03 09:48 | XMS REPORT | Continuity of Care Document ---
Author Author [facility] Organization [facility] Address Unknown Phone Unavailable Care Team Providers Care Metallurgical Analyst Name Role Phone [facility] [phone] Insurance Providers Payer Name Policy Number Subscriber Name Relationship Self Pay Kelton Rodriguez 01 Self / Same As Patient Advance Directives Directive Response Recor ded Date Advance Directives N 3:43pm Health Care Power of Automotive Product Specialist N 06/13/13 3:43pm Organ Donor N 06/13/13 3 :43pm Problems No Known Problems or Medical conditions. Family History History Response Recorde d Date/Time Hx Family Cancer Y MATERNAL GMA 01/20/12 3:49am Hx Family Hypertension Y PATERNAL GMA 01/20/12 3:49am Social History History Response Recorde d Date/Time Alcohol Use Occasionally Uses 06/13/13 3:43pm Recreational Drug Use N 06/13/13 3:43pm Sexually Transmitted Disease N 06/13/13 3:43pm HIV/AIDS N 06/13/13 3:43 pm Allergies, Adverse Reactions, Alerts Allergen Type Severity Reaction Last Updated No Known Drug Allergies 04/28/10 Medications Medication Dose Units Route Sig Qty Days Ciprofloxacin (Cipro) 1 Tab PO BID 7 Acetaminophen (Tylenol) 1000 Mg PO Q4H PRN Permethrin (Elimite 5% Cream) 0 TOP ONCE 1 Immunizations Name Given Type influenza, split (incl. purified surface antigen) 06/13/13 A Response Recorded Date/Time Status not known Unknown Results Test Date Result Interp. Ref. Range Acetaminophen Screen September 18 2 11:00am NEGATIVE - Activated Partial Thromboplast Time September 17, 2011 7:38pm 26 SEC N 24-35 Alanine Aminotransferase (ALT/SGPT) December 08, 2011 12:54pm 27 U/L L 30-65 Albumin December 08, 2011 12:54pm 2.6 G/DL L 3.4-5.0 Alkaline Phosphatase December 08, 2011 12:54p m 119 U/L N 50-136 Amylase Level December 08, 2011 12:54pm 37 U/L N 25-115 Aspartate Amino Transf (AST/SGOT) Ap 2011 12:54pm 20 U/L N 15-37 B-Type Natriuretic Peptide October 24, 2011 2:55pm 17.3 PG/ML N 5.0-100.0 BUN/Creatinine Ratio February 22, 2012 9:55am 7 - Basophils # (Auto) January 22, 2012 6:10am 0.0 10^3/uL N 0.0-0.1 Basophils (%) (Auto) January 22, 2012 6:10am 0 % N 0-10 Blood Urea Nitrogen February 22, 2012 9:55am 6 MG/DL L 7-18 Calcium Level February 22, 2012 9:55am 8.6 MG/DL N 8.5-10.1 Carbon Dioxide Level February 22, 2012 9:55am 32 MMOL/L N 21-32 Chlamydia DNA Probe February 21, 2010 5:23pm NEG - Chlamydia/GC DNA Probe Source January 262009 5:23pm VAGINAL - Chloride Level February 22, 2012 9:55am 105 MMOL/L N 101-110 Creatine Kinase MB September 17, 2011 7:38pm 0.2 NG/ML N 0.0-3.6 Creatinine February 22, 2012 9:55am 0.9 MG/DL N 0.6-1.3 D-Dimer September 14, 2011 7:40pm 0.55 UG/ML H 0.00-0.49 Eosinophils # (Auto) January 22, 2012 6:10am 0.3 10^3/uL N 0.0-0.3 Eosinophils (%) (Auto) January 22, 2012 6:10am 3 % N 0-10 Erythrocyte Sedimentation Rate Janua 2011 7:40pm 33 MM/HR H 0-20 Glucose Level February 22, 2012 9:55am 67 MG/DL L 74-106 Hematocrit January 22, 2012 6:10am 27 % L 35-52 Hemoglobin January 22, 2012 6:10am 9.1 G/DL L 11.5-16.0 Human Chorionic Gonadotropin, Quant February 21, 2010 4:11pm [address]13 MIU/ML H 0-6 Lactate Dehydrogenase October 05 011 1:00pm 122 U/L N 100-190 Lipase December 08, 2011 12:54pm 99 U/L N 73-393 Lymphocytes # (Auto) January 22, 2012 6:10am 2.3 X 10^3 N 1.0-4.0 Lymphocytes (%) (Auto) January 22, 2012 6:10am 26 % N 12-44 Magnesium Level February 22, 2012 9:55am 1.9 MG/DL N 1.8-2.4 Mean Corpuscular Hemoglobin January 22, 2012 6:10am 31 PG N 25-34 Mean Corpuscular Hemoglobin Concent January 22, 2012 6:10am 34 G/DL N 32-36 Mean Corpuscular Volume January 22, 2012 6:10a m 92 FL N 80-99 Mean Platelet Volume January 22, 2012 6:10am 10.7 FL H 7.4-10.4 Monocytes # (Auto) January 22, 2012 6:10am 0.7 X 10^3 N 0.0-1.0 Monocytes (%) (Auto) January 22, 2012 6:10am 8 % N 0-12 Neisseria gonorrhoeae DNA Probe February 21, 2010 5:23pm NEG - Neutrophils # (Auto) January 22, 2012 6:10am 5.4 X 10^3 N 1.8-7.8 Neutrophils (%) (Auto) January 22, 2012 6:10am 63 % N 42-75 Platelet Count January 22, 2012 6:10am 212 10^3/uL N 130-400 Potassium Level February 22, 2012 9:55am 3.8 MMOL/L N 3.6-5.0 Prothromb Time International Ratio J an2011 7:38pm 0.9 N 0.8-1.4 Prothrombin Time September 17, 2011 7:38pm 12.5 SEC N 12.2-14.7 Red Blood Count January 22, 2012 6:10am 2.93 10^6/uL L 4.35-5.85 Red Cell Distribution Width January 22, 2012 6:10am 12.7 % N 10.0-14.5 Sodium Level February 22, 2012 9:55am 143 MMOL/L N 135-145 TSH [place] Testing September 14, 2011 7:40p m 1.72 UIU/ML N 0.34-5.60 Thyroid Stimulating Hormone (TSH) Ju 2011 9:55am 1.83 UIU/ML N 0.34-5.60 Thyroxine (T4) February 22, 2012 9:55am 7.6 UG/DL - Total Bilirubin December 08, 2011 12:54pm 0.5 MG/DL N 0.0-1.0 Total Creatine Kinase September 17 7:38pm 54 U/L N 1-159 Total Protein December 08, 2011 12:54pm 6.5 G/DL N 6.4-8.2 Troponin I October 24, 2011 2:55pm < 0.10 NG/ML 0.00-0.10 Ur Tricyclic Antidepressants Screen September 18, 2011 11:00am NEGATIVE - Uric Acid October 05, 2010 1:00pm 7.9 MG/DL H 2.6-7.2 Urine Amorphous Sediment February 21 10 3:48pm RARE GAURAV URATES H - Urine Amphetamines Screen August 11:00am NEGATIVE - Urine Bacteria January 20, 2012 12:20am NEGATIVE - Urine Barbiturates Screen August 11:00am NEGATIVE - Urine Benzodiazepines Screen September 18, 2011 11:00am NEGATIVE - Urine Bilirubin January 20, 2012 12:20am NEGATIVE - Urine Calcium Oxalate Crystals 2011 8:40pm - Urine Casts January 20, 2012 12:20am NONE - Urine Clarity January 20, 2012 12:20am CLEAR - Urine Cocaine Screen September 18 2 11:00am NEGATIVE - Urine Color January 20, 2012 12:20am YELLOW - Urine Crystals January 20, 2012 12:20am NONE - Urine Culture Indicated January 20, 2012 12:20am NO - Urine Glucose (UA) January 20, 2012 12:20am NEGATIVE - Urine Ketones January 20, 2012 12:20am NEGATIVE - Urine Leukocyte Esterase January 19 2 12:20am NEGATIVE - Urine Methamphetamines Screen 2011 11:00am NEGATIVE - Urine Mucus January 20, 2012 12:20am NEGATIVE - Urine Nitrate July 05, 2007 6:21pm Negative - Urine Nitrite January 20, 2012 12:20am NEGATIVE - Urine Opiates Screen September 18 2 11:00am NEGATIVE - Urine Phencyclidine Screen August 282011 11:00am NEGATIVE - Urine Test July 05 6:21pm Negative - Urine Protein January 20, 2012 12:20am NEGATIVE - Urine RBC January 20, 2012 12:20am 2-5 /HPF H - Urine Specific [place] January 20, 2012 12:20a m 1.010 L - Urine Squamous Epithelial Cells January 20, 2012 12:20am 2-5 - Urine Urobilinogen January 20, 2012 12:20am NORMAL MG/DL - Urine WBC January 20, 2012 12:20am NONE /HPF - Urine pH January 20, 2012 12:20am 7.0 - White Blood Count January 22, 2012 6:10am 8.7 10^3/uL N 4.3-11.0 Estimat Glomerular Filtration Rate J une 2011 9:55am > 60 - Urine Methadone Screen September 18 11:00am NEGATIVE - Urine Cannabinoids Screen August 11:00am NEGATIVE - Urine RBC (Auto) January 20, 2012 12:20am 2+ H - Procedures Procedure Code Date REVISION OF CERVIX 63174 05/04/10 LOW CERVICAL 74.1 10/05/10 REVISION OF CERVIX 78838 08/15/11 LOW CERVICAL 74.1 01/20/12 Genital Culture MRSA Screen 08/10/11 Urine Culture 10/05/10 Gram Stain 04/15/08 Encounters Encounter Location Date/ Time Registered Emergency Room [facility] 06/13/13 3:37pm Pre-registered Emergency Room [facility] 04/06/13 10:15pm Departed Emergency Room [facility] 10/13/12 8:29pm Discharged Inpatient [facility] 01/20/12 1:45am
--- OUTSIDE RECORDS SUMMARY | 2020-02-03 09:48 | XMS REPORT | Continuity of Care Document ---
Author Author [facility] Organization [facility] Address Unknown Phone Unavailable Care Team Providers Care Validation Leader Name Role Phone [facility] [phone] Insurance Providers Payer Name Policy Number Subscriber Name Relationship Self Pay Ketlon Rodriguez 01 Self / Same As Patient Advance Directives Directive Response Recor ded Date Advance Directives N 3:07pm Health Care Power of Cable Braider N 06/14/13 3:07pm Organ Donor Y 06/14/13 3 :07pm Problems No Known Problems or Medical conditions. Family History History Response Recorde d Date/Time Hx Family Cancer Y 06/14 3:13pm Hx Family Lung Cancer Y GRANDMOTHER 06/14/13 3:13pm Hx Family Colorectal Cancer Y PATERN AL GRANDFATHER 06/14/13 3:13pm Hx Family Cardiac Disorders Y 06/14/13 3:13pm Hx Family Hypertension Y PATERNAL GMA 06/14/13 3:13pm Social History History Response Recorde d Date/Time Alcohol Use Occasionally Uses 06/14/13 3:07pm Recreational Drug Use N 06/14/13 3:07pm Sexually Transmitted Disease N 06/14/13 3:07pm HIV/AIDS N 06/14/13 3:07 pm Allergies, Adverse Reactions, Alerts Allergen Type Severity Reaction Last Updated No Known Drug Allergies 04/28/10 Medications Medication Dose Units Route Sig Qty Days Naproxen (Naprosyn) 500 Mg PO BIDPC 30 Doxycycline Hyclate (Rx-Vibramycin Tablet) 100 Mg PO BID@ 9 Acetamin/Butalbital/Caffeine (Fioricet) 1 Tab PO Q4H PRN 30 Nystatin (Mycostatin Po) 5 Ml PO QID 3 Ciprofloxacin (Cipro) 1 Tab PO BID 7 Acetaminophen (Tylenol) 1000 Mg PO Q4H PRN Permethrin (Elimite 5% Cream) 0 TOP ONCE 1 Immunizations Name Given Type influenza, split (incl. purified surface antigen) 06/15/13 A influenza, split (incl. purified surface antigen) 06/15/13 A influenza, split (incl. purified surface antigen) 06/13/13 A Response Recorded Date/Time Status not known Unknown Results Test Date Result Interp. Ref. Range Acetaminophen Screen September 18 2 11:00am NEGATIVE - Activated Partial Thromboplast Time June 15, 2013 6:10am 40 SEC H 24-35 Alanine Aminotransferase (ALT/SGPT) June 14, 2013 10:59am 52 U/L N 30-65 Albumin June 14, 2013 10:59am 2.3 G/DL L 3.4-5.0 Alkaline Phosphatase June 14 3 10:59am 191 U/L H 50-136 Amylase Level December 08, 2011 12:54pm 37 U/L N 25-115 Aspartate Amino Transf (AST/SGOT) Oc tober 2012 10:59am 30 U/L N 15-37 B-Type Natriuretic Peptide October 24, 2011 2:55pm 17.3 PG/ML N 5.0-100.0 BUN/Creatinine Ratio June 16 3 4:45am 8 - Band Neutrophils June 16, 2013 4:45am 4 % - Basophils # (Auto) June 16, 2013 4:45am 0.0 10^3/uL N 0.0-0.1 Basophils % (Manual) June 16 3 4:45am 0 % - Basophils (%) (Auto) June 16 3 4:45am 1 % N 0-10 Blood Urea Nitrogen June 16, 2013 4:45a m 5 MG/DL L 7-18 C-Reactive Protein June 16, 2013 4:45am 14.8 MG/DL H 0.2-0.9 CSF Appearance June 15, 2013 3:36pm - CSF Color June 15, 2013 3:36pm COLORLESS - CSF Glucose June 15, 2013 3:36pm 58 MG/DL N 50-80 CSF RBC June 15, 2013 3:36pm 0 CELLS N 0-0 CSF Total Protein June 15, 2013 3:36pm 24 MG/DL N 15-45 CSF Tube Number June 15, 2013 3:36pm 4 - CSF WBC June 15, 2013 3:36pm 0 CELLS N 0-5 Calcium Level June 16, 2013 4:45am 8.1 MG/DL L 8.5-10.1 Carbon Dioxide Level June 16 3 4:45am 28 MMOL/L N 21-32 Chlamydia DNA Probe February 21, 2010 5:23pm NEG - Chlamydia/GC DNA Probe Source January 262009 5:23pm VAGINAL - Chloride Level June 16, 2013 4:45am 106 MMOL/L N 101-110 Creatine Kinase MB September 17, 2011 7:38pm 0.2 NG/ML N 0.0-3.6 Creatinine June 16, 2013 4:45am 0.6 MG/DL N 0.6-1.3 D-Dimer September 14, 2011 7:40pm 0.55 UG/ML H 0.00-0.49 Eosinophils # (Auto) June 16 3 4:45am 0.2 10^3/uL N 0.0-0.3 Eosinophils % (Manual) June 16 4:45am 1 % - Eosinophils (%) (Auto) June 16 4:45am 3 % N 0-10 Erythrocyte Sedimentation Rate [place] 2011 7:40pm 33 MM/HR H 0-20 Glucose Level June 16, 2013 4:45am 96 MG/DL N 74-106 Hematocrit June 16, 2013 4:45am 31 % L 35-52 Hemoglobin June 16, 2013 4:45am 10.4 G/DL L 11.5-16.0 Human Chorionic Gonadotropin, Quant February 21, 2010 4:11pm 43467 MIU/ML H 0-6 Lactate Dehydrogenase October 05 011 1:00pm 122 U/L N 100-190 Lipase December 08, 2011 12:54pm 99 U/L N 73-393 Lymphocytes # (Auto) June 16 3 4:45am 2.0 X 10^3 N 1.0-4.0 Lymphocytes % (Manual) June 16 4:45am 35 % - Lymphocytes (%) (Auto) June 16 4:45am 39 % N 12-44 Magnesium Level February 22, 2012 9:55am 1.9 MG/DL N 1.8-2.4 Mean Corpuscular Hemoglobin June 16, 2013 4:45am 31 PG N 25-34 Mean Corpuscular Hemoglobin Concent June 16, 2013 4:45am 34 G/DL N 32-36 Mean Corpuscular Volume June 16, 2013 4:45am 91 FL N 80-99 Mean Platelet Volume June 16 3 4:45am 10.3 FL N 7.4-10.4 Monocytes # (Auto) June 16, 2013 4:45am 0.6 X 10^3 N 0.0-1.0 Monocytes % (Manual) June 16 3 4:45am 11 % - Monocytes (%) (Auto) June 16 4:45am 13 % H 0-12 Neisseria gonorrhoeae DNA Probe February 21, 2010 5:23pm NEG - Neutrophils # (Auto) June 16 4:45am 2.3 X 10^3 N 1.8-7.8 Neutrophils % (Manual) June 16 4:45am 41 % - Neutrophils (%) (Auto) June 16 4:45am 45 % N 42-75 Platelet Count June 16, 2013 4:45am 183 10^3/uL N 130-400 Potassium Level June 16, 2013 4:45am 3.9 MMOL/L N 3.6-5.0 Prothromb Time International Ratio J an2011 7:38pm 0.9 N 0.8-1.4 Prothrombin Time June 15, 2013 6:10am 13.6 SEC N 12.2-14.7 Reactive Lymphocytes June 16 3 4:45am 8 % - Red Blood Count June 16, 2013 4:45am 3.40 10^6/uL L 4.35-5.85 Red Cell Distribution Width June 16, 2013 4:45am 11.9 % N 10.0-14.5 Sodium Level June 16, 2013 4:45am 139 MMOL/L N 135-145 TSH [place] Testing September 14, 2011 7:40p m 1.72 UIU/ML N 0.34-5.60 Thyroid Stimulating Hormone (TSH) 2011 9:55am 1.83 UIU/ML N 0.34-5.60 Thyroxine (T4) February 22, 2012 9:55am 7.6 UG/DL - Total Bilirubin June 14, 2013 10:59am 0.4 MG/DL N 0.0-1.0 Total Creatine Kinase September 17 7:38pm 54 U/L N 1-159 Total Protein June 14, 2013 10:59am 6.1 G/DL L 6.4-8.2 Troponin I October 24, 2011 2:55pm < 0.10 NG/ML 0.00-0.10 Ur Tricyclic Antidepressants Screen September 18, 2011 11:00am NEGATIVE - Uric Acid October 05, 2010 1:00pm 7.9 MG/DL H 2.6-7.2 Urine Amorphous Sediment February 21 10 3:48pm RARE GAURAV URATES H - Urine Amphetamines Screen August 11:00am NEGATIVE - Urine Bacteria June 14, 2013 10:55am MODERATE /HPF H - Urine Barbiturates Screen August 11:00am NEGATIVE - Urine Benzodiazepines Screen September 18, 2011 11:00am NEGATIVE - Urine Bilirubin June 14, 2013 10:55am NEGATIVE - Urine Calcium Oxalate Crystals Janua 2011 8:40pm - Urine Casts June 14, 2013 10:55am NONE /LPF - Urine Clarity June 14, 2013 10:55am CLEAR - Urine Cocaine Screen September 18 2 11:00am NEGATIVE - Urine Color June 14, 2013 10:55am YELLOW - Urine Crystals June 14, 2013 10:55am NONE /LPF - Urine Culture Indicated June 14, 2013 10:55am YES - Urine Glucose (UA) June 14, 2013 10:55a m NEGATIVE - Urine Ketones June 14, 2013 10:55am NEGATIVE - Urine Leukocyte Esterase June 14, 2013 10:55am 1+ H - Urine Methamphetamines Screen 2011 11:00am NEGATIVE - Urine Mucus June 14, 2013 10:55am NEGATIVE /LPF - Urine Nitrate July 05, 2007 6:21pm Negative - Urine Nitrite June 14, 2013 10:55am NEGATIVE - Urine Opiates Screen September 18 2 11:00am NEGATIVE - Urine Phencyclidine Screen August 282011 11:00am NEGATIVE - Urine Test July 05 07 6:21pm Negative - Urine Protein June 14, 2013 10:55am 2+ H - Urine RBC June 14, 2013 10:55am NONE /HPF - Urine Specific Lilly June 14 013 10:55am 1.010 L - Urine Squamous Epithelial Cells Octo 2012 10:55am 2-5 /HPF - Urine Urobilinogen June 14, 2013 10:55a m 1 MG/DL - Urine WBC June 14, 2013 10:55am 10-25 /HPF H - Urine pH June 14, 2013 10:55am 6 - White Blood Count June 16, 2013 4:45am 5.1 10^3/uL N 4.3-11.0 Estimat Glomerular Filtration Rate O ct2012 10:59am > 60 - Blood Morphology Comment June 16, 2013 4:45am NORMAL - Urine Methadone Screen September 18 012 11:00am NEGATIVE - Urine Cannabinoids Screen August 11:00am NEGATIVE - Urine RBC (Auto) June 14, 2013 10:55am 2+ H - Cytology Report Status June 15 3:36pm SEE FOOTNOTE - INR Comment June 15, 2013 6:10am 1.1 N 0.8-1.4 Procedures Procedure Code Date REVISION OF CERVIX 04057 05/04/10 LOW CERVICAL 74.1 10/05/10 REVISION OF CERVIX 56523 08/15/11 LOW CERVICAL 74.1 01/20/12 SPINAL TAP 03.31 3 Blood Culture 06/13/13 Gram Stain 06/15/13 Genital Culture Influenza Types A,B Antigen (UDAY) 06/13/13 Urine Culture 06/14/13 Gram Stain 04/15/08 Encounters Encounter Location Date/ Time Discharged Inpatient [facility] 06/14/13 11:52am Departed Emergency Room [facility] 06/13/13 3:37pm Pre-registered Emergency Room [facility] 04/06/13 10:15pm
--- OUTSIDE RECORDS SUMMARY | 2020-02-03 09:48 | XMS REPORT | Continuity of Care Document ---
Author Organization Unknown Address Unknown Phone Unavailable Allergies Active Description Code Type Severity Reaction Onset Reported/Identified Relationship to Patient Clinical Status Yes No Known Drug Allergies [id number] Drug Allergy Unknown N/A 04/28/2010 Medications There is no data. Problems Date Dx Coded Attending Type Code Diagnosis Diagnosed By 03/31/2008 795.03 PAP ANICOLAOU SMEAR OF CERVIX WITH LOW GRADE SQUAMOUS INTRAEPITHELIAL LESION (LGSIL) 03/31/2008 795.03 PAP ANICOLAOU SMEAR OF CERVIX WITH LOW GRADE SQUAMOUS INTRAEPITHELIAL LESION (LGSIL) 03/31/2008 RODOLFO NORIEGA DO 795.03 PAPANICOLAOU SMEAR OF CERVIX WITH LOW GRADE SQUAMOUS INTRAEPITHELIAL LESION (LGSIL) 03/31/2008 VARGAS EUCEDA MD 795.0 3 PAPANICOLAOU SMEAR OF CERVIX WITH LOW GRADE SQUAMOUS INTRAEPITHELIAL LESION (LGSIL) 03/31/2008 VARGAS EUCEDA MD 795.0 3 PAPANICOLAOU SMEAR OF CERVIX WITH LOW GRADE SQUAMOUS INTRAEPITHELIAL LESION (LGSIL) 03/31/2008 MADI GARIBAY MD 795 .03 PAPANICOLAOU SMEAR OF CERVIX WITH LOW GRADE SQUAMOUS INTRAEPITHELIAL LESION (LGSIL) 03/31/2008 MADI GARIBAY MD 795 .03 PAPANICOLAOU SMEAR OF CERVIX WITH LOW GRADE SQUAMOUS INTRAEPITHELIAL LESION (LGSIL) 03/31/2008 MADI GARIBAY MD 795 .03 PAPANICOLAOU SMEAR OF CERVIX WITH LOW GRADE SQUAMOUS INTRAEPITHELIAL LESION (LGSIL) 03/31/2008 HERRERA CRAWFORD APRN 795.03 PAPANICOLAOU SMEAR OF CERVIX WITH LOW GR BRYCE SQUAMOUS INTRAEPITHELIAL LESION (LGSIL) 03/31/2008 RODOLFO NORIEGA DO 795.03 PAPANICOLAOU SMEAR OF CERVIX WITH LOW GRADE SQUAMOUS INTRAEPITHELIAL LESION (LGSIL) 04/21/2009 462 Pharyn gitis Acute 04/21/2009 462 Pharyn gitis Acute 04/21/2009 RODOLFO NORIEGA DO 462 Pharyngitis Acute 04/21/2009 VARGAS EUCEDA MD 462 Pharyngitis Acute 04/21/2009 VARGAS EUCEDA MD 46Carolynn Pharyngitis Acute 04/21/2009 MADI GARIBAY MD 462 Pharyngitis Acute 04/21/2009 MADI GARIBAY MD 462 Pharyngitis Acute 04/21/2009 MADI GARIBAY MD 462 Pharyngitis Acute 04/21/2009 TY REHAB TRAINER, HERRERA R 4 62 Pharyngitis Acute 04/21/2009 RODOLFO NORIEGA DO K 462 Pharyngitis Acute 12/08/2009 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 12/08/2009 789.00 ABD OMINAL PAIN UNSPECIFIED SITE 12/08/2009 V72.31 DIRECTOR ENERGY EXAM, ROUTINE 12/08/2009 V74.5 STD SCREEN 12/08/2009 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 12/08/2009 789.00 ABD OMINAL PAIN UNSPECIFIED SITE 12/08/2009 V72.31 DIRECTOR ENERGY EXAM, ROUTINE 12/08/2009 V74.5 STD SCREEN 12/08/2009 RODOLFO NORIEGA DO K 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 12/08/2009 GIOVANNA NORIEGA DOA K 789.00 ABDOMINAL PAIN UNSPECIFIED SITE 12/08/2009 GIOVANNA NORIEGA DOA K V72.31 DIRECTOR ENERGY EXAM, ROUTINE 12/08/2009 RODOLFO NORIEGA DO K V74.5 STD SCREEN 12/08/2009 VARGAS EUCEDA MD 622.1 1 MILD DYSPLASIA OF CERVIX 12/08/2009 VARGAS EUCEDA MD 789.0 0 ABDOMINAL PAIN UNSPECIFIED SITE 12/08/2009 VARGAS EUCEDA MD V72.3 1 DIRECTOR ENERGY EXAM, ROUTINE 12/08/2009 VARGAS EUCEDA MD V74.5 STD SCREEN 12/08/2009 VARGAS EUCEDA MD 622.1 1 MILD DYSPLASIA OF CERVIX 12/08/2009 VARGAS EUCEDA MD 789.0 0 ABDOMINAL PAIN UNSPECIFIED SITE 12/08/2009 VARGAS EUCEDA MD V72.3 1 DIRECTOR ENERGY EXAM, ROUTINE 12/08/2009 VARGAS EUCEDA MD V74.5 STD SCREEN 12/08/2009 MADI GARIBAY MD 622 .11 MILD DYSPLASIA OF CERVIX 12/08/2009 [place]IX MD, MADI N 789 .00 ABDOMINAL PAIN UNSPECIFIED SITE 12/08/2009 MADI GARIBAY MD V72 .31 DIRECTOR ENERGY EXAM, ROUTINE 12/08/2009 MADI GARIBAY MD V74 .5 STD SCREEN 12/08/2009 MADI GARIBAY MD N 622 .11 MILD DYSPLASIA OF CERVIX 12/08/2009 MADI GARIBAY MD N 789 .00 ABDOMINAL PAIN UNSPECIFIED SITE 12/08/2009 MADI GARIBAY MD V72 .31 DIRECTOR ENERGY EXAM, ROUTINE 12/08/2009 MADI GARIBAY MD V74 .5 STD SCREEN 12/08/2009 MADI GARIBAY MD N 622 .11 MILD DYSPLASIA OF CERVIX 12/08/2009 MADI GARIBAY MD N 789 .00 ABDOMINAL PAIN UNSPECIFIED SITE 12/08/2009 MADI GARIBAY MD V72 .31 DIRECTOR ENERGY EXAM, ROUTINE 12/08/2009 MADI GARIBAY MD V74 .5 STD SCREEN 12/08/2009 TY WHEELER, HERRERA R 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 12/08/2009 TY WHEELER HERRERA R 789.00 ABDOMINAL PAIN UNSPECIFIED SITE 12/08/2009 TY WHEELER HERRERA R V72.31 DIRECTOR ENERGY EXAM, ROUTINE 12/08/2009 TY WHEELER HERRERA R V74.5 STD SCREEN 12/08/2009 GIOVANNA NORIEGA DOA K 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 12/08/2009 GIOVANNA NORIEGA DOA K 789.00 ABDOMINAL PAIN UNSPECIFIED SITE 12/08/2009 GIOVANNA NORIEGA DOA K V72.31 DIRECTOR ENERGY EXAM, ROUTINE 12/08/2009 GIOVANNA NORIEGA DOA K V74.5 STD SCREEN 02/11/2010 V72.42 PRE GNANCY TEST POSITIVE RESULT 02/11/2010 V72.42 PRE GNANCY TEST POSITIVE RESULT 02/11/2010 GIOVANNA NORIEGA DOA K V72.42 TEST POSITIVE RESULT 02/11/2010 VARGAS EUCEDA MD V72.4 2 TEST POSITIVE RESULT 02/11/2010 VARGAS EUCEDA MD V72.4 2 TEST POSITIVE RESULT 02/11/2010 MADI GARIBAY MD V72 .42 TEST POSITIVE RESULT 02/11/2010 MADI GARIBAY MD V72 .42 TEST POSITIVE RESULT 02/11/2010 MADI GARIBAY MD V72 .42 TEST POSITIVE RESULT 02/11/2010 HERRERA CRAWFORD APRN R V72.42 TEST POSITIVE RESULT 02/11/2010 RODOLFO NORIEGA DO V72.42 TEST POSITIVE RESULT 02/14/2010 V23.2 HIGH RISK HX OF 02/14/2010 V23.89 SUP ERVISION OF OTHER HIGH-RISK 02/14/2010 V23.2 HIGH RISK HX OF 02/14/2010 V23.89 SUP ERVISION OF OTHER HIGH-RISK 02/14/2010 RODOLFO NORIEGA DO V23.2 HIGH RISK HX OF 02/14/2010 RODOLFO NORIEGA DO V23.89 SUPERVISION OF OTHER HIGH-RISK 02/14/2010 VARGAS EUCEDA MD V23.2 HIGH RISK HX OF 02/14/2010 VARGAS EUCEDA MD V23.8 9 SUPERVISION OF OTHER HIGH-RISK 02/14/2010 VARGAS EUCEDA MD V23.2 HIGH RISK HX OF 02/14/2010 VARGAS EUCEDA MD V23.8 9 SUPERVISION OF OTHER HIGH-RISK 02/14/2010 MADI GARIBAY MD V23 .2 HIGH RISK HX OF 02/14/2010 MADI GARIBAY MD V23 .89 SUPERVISION OF OTHER HIGH-RISK 02/14/2010 MADI GARIBAY MD V23 .2 HIGH RISK HX OF 02/14/2010 MADI GARIBAY MD V23 .89 SUPERVISION OF OTHER HIGH-RISK 02/14/2010 MADI GARIBAY MD V23 .2 HIGH RISK HX OF 02/14/2010 MADI GARIBAY MD V23 .89 SUPERVISION OF OTHER HIGH-RISK 02/14/2010 HERRERA CRAWFORD APRN V23.2 HIGH RISK HX OF 02/14/2010 HERRERA CRAWFORD APRN V23.89 SUPERVISION OF OTHER HIGH-RISK 02/14/2010 RODOLFO NORIEGA DO V23.2 HIGH RISK HX OF 02/14/2010 RODOLFO NORIEGA DO V23.89 SUPERVISION OF OTHER HIGH-RISK 09/08/2010 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 09/08/2010 465.9 UPPE R RESPIRATORY INFECTION 09/08/2010 V22.2 PREG KLAUDIA 09/08/2010 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 09/08/2010 465.9 UPPE R RESPIRATORY INFECTION 09/08/2010 V22.2 PREG KLAUDIA 09/08/2010 NORIEGA DO, RODOLFO K 381.81 EUSTACHIAN TUBE DYSFUNCTION 09/08/2010 NORIEGA DO ROODLFO K 465.9 UPPER RESPIRATORY INFECTION 09/08/2010 NORIEGA DO RODOLFO K V22.2 09/08/2010 VARGAS EUCEDA MD 381.8 1 EUSTACHIAN TUBE DYSFUNCTION 09/08/2010 VARGAS EUCEDA MD 465.9 UPPER RESPIRATORY INFECTION 09/08/2010 VARGAS EUCEDA MD V22.2 09/08/2010 VARGAS EUCEDA MD 381.8 1 EUSTACHIAN TUBE DYSFUNCTION 09/08/2010 VARGAS EUCEDA MD 465.9 UPPER RESPIRATORY INFECTION 09/08/2010 VARGAS EUCEDA MD V22.2 09/08/2010 MADI GARIBAY MD 381 .81 EUSTACHIAN TUBE DYSFUNCTION 09/08/2010 MADI GARIBAY MD N 465 .9 UPPER RESPIRATORY INFECTION 09/08/2010 MADI GARIBAY MD V22 .2 09/08/2010 MADI GARIBAY MD 381 .81 EUSTACHIAN TUBE DYSFUNCTION 09/08/2010 MADI GARIBAY MD N 465 .9 UPPER RESPIRATORY INFECTION 09/08/2010 MADI GARIBAY MD N V22 .2 09/08/2010 MADI GARIBAY MD 381 .81 EUSTACHIAN TUBE DYSFUNCTION 09/08/2010 MADI GARIBAY MD N 465 .9 UPPER RESPIRATORY INFECTION 09/08/2010 MADI GARIBAY MD N V22 .2 09/08/2010 HERRERA CRAWFORD APRN R 381.81 EUSTACHIAN TUBE DYSFUNCTION 09/08/2010 TY MERLOSNLISEHERRERA R 465.9 UPPER RESPIRATORY INFECTION 09/08/2010 TY WHEELER, HERRERA R V22.2 09/08/2010 NORIEGA GIOVANNA LOMAXA K 381.81 EUSTACHIAN TUBE DYSFUNCTION 09/08/2010 NORIEGA DO RODOLFO K 465.9 UPPER RESPIRATORY INFECTION 09/08/2010 NORIEGA DO RODOLFO K V22.2 09/19/2010 V65.11 NEW MOMMY VISIT 09/19/2010 V65.11 NEW MOMMY VISIT 09/19/2010 RODOLFO NORIEGA DO V65.11 NEW MOMMY VISIT 09/19/2010 VARGAS EUCEDA MD V65.1 1 NEW MOMMY VISIT 09/19/2010 VARGAS EUCEDA MD V65.1 1 NEW MOMMY VISIT 09/19/2010 MADI GARIBAY MD V65 .11 NEW MOMMY VISIT 09/19/2010 MADI GARIBAY MD V65 .11 NEW MOMMY VISIT 09/19/2010 MADI GARIBAY MD V65 .11 NEW MOMMY VISIT 09/19/2010 HERRERA CRAWFORD APRN V65.11 NEW MOMMY VISIT 09/19/2010 RODOLFO NORIEGA DO V65.11 NEW MOMMY VISIT 04/16/2012 709.9 UNSP ECIFIED DISORDER OF SKIN AND SUBCUTANEOUS TISSUE 04/16/2012 727.49 OTH ER GANGLION AND CYST OF SYNOVIUM TENDON AND BURSA 04/16/2012 783.1 ABNO RMAL WEIGHT GAIN 04/16/2012 V65.42 COU NSELING - SMOKING CESSATION 04/16/2012 709.9 UNSP ECIFIED DISORDER OF SKIN AND SUBCUTANEOUS TISSUE 04/16/2012 727.49 OTH ER GANGLION AND CYST OF SYNOVIUM TENDON AND BURSA 04/16/2012 783.1 ABNO RMAL WEIGHT GAIN 04/16/2012 V65.42 COU NSELING - SMOKING CESSATION 04/16/2012 RODOLFO NORIEGA DO 709.9 UNSPECIFIED DISORDER OF SKIN AND SUBCUTANEOUS TISSUE 04/16/2012 RODOLFO NORIEGA DO 727.49 OTHER GANGLION AND CYST OF SYNOVIUM TENDON AND BURSA 04/16/2012 RODOLFO NORIEGA DO 783.1 ABNORMAL WEIGHT GAIN 04/16/2012 RODOLFO NORIEGA DO V65.42 COUNSELING - SMOKING CESSATION 04/16/2012 VARGAS EUCEDA MD 709.9 UNSPECIFIED DISORDER OF SKIN AND SUBCUTANEOUS TISSUE 04/16/2012 VARGAS EUCEDA MD 727.4 9 OTHER GANGLION AND CYST OF SYNOVIUM TENDON AND BURSA 04/16/2012 VARGAS EUCEDA MD 783.1 ABNORMAL WEIGHT GAIN 04/16/2012 VARGAS EUCEDA MD V65.4 2 COUNSELING - SMOKING CESSATION 04/16/2012 VARGAS EUCEDA MD 709.9 UNSPECIFIED DISORDER OF SKIN AND SUBCUTANEOUS TISSUE 04/16/2012 VARGAS EUCEDA MD 727.4 9 OTHER GANGLION AND CYST OF SYNOVIUM TENDON AND BURSA 04/16/2012 VARGAS EUCEDA MD 783.1 ABNORMAL WEIGHT GAIN 04/16/2012 VARGAS EUCEDA MD V65.4 2 COUNSELING - SMOKING CESSATION 04/16/2012 MADI GARIBAY MD 709 .9 UNSPECIFIED DISORDER OF SKIN AND SUBCUTANEOUS TISSUE 04/16/2012 MADI GARIBAY MD 727 .49 OTHER GANGLION AND CYST OF SYNOVIUM TENDON AND BURSA 04/16/2012 MADI GARIBAY MD 783 .1 ABNORMAL WEIGHT GAIN 04/16/2012 MADI GARIBAY MD V65 .42 COUNSELING - SMOKING CESSATION 04/16/2012 MADI GARIBAY MD 709 .9 UNSPECIFIED DISORDER OF SKIN AND SUBCUTANEOUS TISSUE 04/16/2012 MADI GARIBAY MD 727 .49 OTHER GANGLION AND CYST OF SYNOVIUM TENDON AND BURSA 04/16/2012 MADI GARIBAY MD N 783 .1 ABNORMAL WEIGHT GAIN 04/16/2012 MADI GARIBAY MD N V65 .42 COUNSELING - SMOKING CESSATION 04/16/2012 MADI GARIBAY MD N 709 .9 UNSPECIFIED DISORDER OF SKIN AND SUBCUTANEOUS TISSUE 04/16/2012 MADI GARIBAY MD N 727 .49 OTHER GANGLION AND CYST OF SYNOVIUM TENDON AND BURSA 04/16/2012 MADI GARIBAY MD N 783 .1 ABNORMAL WEIGHT GAIN 04/16/2012 MADI GARIBAY MD V65 .42 COUNSELING - SMOKING CESSATION 04/16/2012 LISE CRAWFORD APRNINA R 709.9 UNSPECIFIED DISORDER OF SKIN AND SUBCUTANEOUS TISSUE 04/16/2012 TY WHEELER HERRERA R 727.49 OTHER GANGLION AND CYST OF SYNOVIUM TENDON AND BURSA 04/16/2012 TY WHEELER, HERRERA R 783.1 ABNORMAL WEIGHT GAIN 04/16/2012 TY WHEELER, HERRERA R V65.42 COUNSELING - SMOKING CESSATION 04/16/2012 RODOLFO NORIEGA DO 709.9 UNSPECIFIED DISORDER OF SKIN AND SUBCUTANEOUS TISSUE 04/16/2012 RODOLFO NORIEGA DO 727.49 OTHER GANGLION AND CYST OF SYNOVIUM TENDON AND BURSA 04/16/2012 RODOLFO NORIEGA DO 783.1 ABNORMAL WEIGHT GAIN 04/16/2012 RODOLFO NORIEGA DO V65.42 COUNSELING - SMOKING CESSATION 10/14/2012 692.9 DERM ATITIS 10/14/2012 692.9 DERM ATITIS 10/14/2012 RODOLFO NORIEGA DO 692.9 DERMATITIS 10/14/2012 VARGAS EUCEDA MD 692.9 DERMATITIS 10/14/2012 VARGAS EUCEDA MD 692.9 DERMATITIS 10/14/2012 MADI GARIBAY MD 692 .9 DERMATITIS 10/14/2012 MADI GARIBAY MD 692 .9 DERMATITIS 10/14/2012 MADI GARIBAY MD 692 .9 DERMATITIS 10/14/2012 HERRERA CRAWFORD APRN 692.9 DERMATITIS 10/14/2012 RODOLFO NORIEGA DO 692.9 DERMATITIS 03/21/2013 785.1 PALP ITATIONS 03/21/[address] PAIN 03/21/2013 RODOLFO NORIEGA DO 785.1 PALPITATIONS 03/21/2013 RODOLFO NORIEGA DO 786.50 CHEST PAIN 03/21/2013 VARGAS EUCEDA MD 785.1 PALPITATIONS 03/21/2013 VARGAS EUCEDA MD 786.5 0 CHEST PAIN 03/21/2013 VARGAS EUCEDA MD 785.1 PALPITATIONS 03/21/2013 VARGAS EUCEDA MD 786.5 0 CHEST PAIN 03/21/2013 MADI GARIBAY MD 785 .1 PALPITATIONS 03/21/2013 MADI GARIBAY MD 786 .50 CHEST PAIN 03/21/2013 MADI GARIBAY MD 785 .1 PALPITATIONS 03/21/2013 MADI GARIBAY MD 786 .50 CHEST PAIN 03/21/2013 MADI GARIBAY MD 785 .1 PALPITATIONS 03/21/2013 MADI GARIBAY MD 786 .50 CHEST PAIN 03/21/2013 HERRERA CRAWFORD APRN 785.1 PALPITATIONS 03/21/2013 HERRERA CRAWFORD APRN R 786.50 CHEST PAIN 03/21/2013 RODOLFO NORIEGA DO 785.1 PALPITATIONS 03/21/2013 RODOLFO NORIEGA DO 786.50 CHEST PAIN 03/27/2013 008.8 HENRIETTA ROENTERITIS, VIRAL 03/27/2013 785.6 ENLA RGEMENT OF LYMPH NODES 03/27/2013 RODOLFO NORIEGA DO 008.8 GASTROENTERITIS, VIRAL 03/27/2013 RODOLFO NORIEGA DO 785.6 ENLARGEMENT OF LYMPH NODES 03/27/2013 VARGAS EUCEDA MD 008.8 GASTROENTERITIS, VIRAL 03/27/2013 VARGAS EUCEDA MD 785.6 ENLARGEMENT OF LYMPH NODES 03/27/2013 VARGAS EUCEDA MD 008.8 GASTROENTERITIS, VIRAL 03/27/2013 VARGAS EUCEDA MD 785.6 ENLARGEMENT OF LYMPH NODES 03/27/2013 MADI GARIBAY MD 008 .8 GASTROENTERITIS, VIRAL 03/27/2013 MADI GARIBAY MD N 785 .6 ENLARGEMENT OF LYMPH NODES 03/27/2013 MADI GARIBAY MD N 008 .8 GASTROENTERITIS, VIRAL 03/27/2013 MADI GARIBAY MD N 785 .6 ENLARGEMENT OF LYMPH NODES 03/27/2013 MADI GARIBAY MD N 008 .8 GASTROENTERITIS, VIRAL 03/27/2013 MADI GARIBAY MD N 785 .6 ENLARGEMENT OF LYMPH NODES 03/27/2013 HERRERA CRAWFORD APRN R 008.8 GASTROENTERITIS, VIRAL 03/27/2013 HERRERA CRAWFORD APRN R 785.6 ENLARGEMENT OF LYMPH NODES 03/27/2013 RODOLFO NORIEGA DO 008.8 GASTROENTERITIS, VIRAL 03/27/2013 RODOLFO NORIEGA DO 785.6 ENLARGEMENT OF LYMPH NODES 04/07/2013 623.5 LEUK ORRHEA NOT SPECIFIED INFECTIVE 04/07/2013 789.01 ABD OMINAL PAIN RIGHT UPPER QUADRANT 04/07/2013 V25.42 CON TRACEPTION SURVEILLANCE (IUD) 04/07/2013 RODOLFO NORIEGA DO 623.5 LEUKORRHEA NOT SPECIFIED INFECTIVE 04/07/2013 RODOLFO NORIEGA DO 789.01 ABDOMINAL PAIN RIGHT UPPER QUADRANT 04/07/2013 RODOLFO NORIEGA DO V25.42 CONTRACEPTION SURVEILLANCE (IUD) 04/07/2013 VARGAS EUCEDA MD 623.5 LEUKORRHEA NOT SPECIFIED INFECTIVE 04/07/2013 VARGAS EUCEDA MD 789.0 1 ABDOMINAL PAIN RIGHT UPPER QUADRANT 04/07/2013 VARGAS EUCEDA MD V25.4 2 CONTRACEPTION SURVEILLANCE (IUD) 04/07/2013 VARGAS EUCEDA MD 623.5 LEUKORRHEA NOT SPECIFIED INFECTIVE 04/07/2013 VARGAS EUCEDA MD 789.0 1 ABDOMINAL PAIN RIGHT UPPER QUADRANT 04/07/2013 VARGAS EUCEDA MD V25.4 2 CONTRACEPTION SURVEILLANCE (IUD) 04/07/2013 MADI GARIBAY MD N 623 .5 LEUKORRHEA NOT SPECIFIED INFECTIVE 04/07/2013 MADI GARIBAY MD N 789 .01 ABDOMINAL PAIN RIGHT UPPER QUADRANT 04/07/2013 MADI GARIBAY MD V25 .42 CONTRACEPTION SURVEILLANCE (IUD) 04/07/2013 MADI GARIBAY MD N 623 .5 LEUKORRHEA NOT SPECIFIED INFECTIVE 04/07/2013 MADI GARIBAY MD N 789 .01 ABDOMINAL PAIN RIGHT UPPER QUADRANT 04/07/2013 MADI GARIBAY MD V25 .42 CONTRACEPTION SURVEILLANCE (IUD) 04/07/2013 MADI GARIBAY MD 623 .5 LEUKORRHEA NOT SPECIFIED INFECTIVE 04/07/2013 MADI GARIBAY MD N 789 .01 ABDOMINAL PAIN RIGHT UPPER QUADRANT 04/07/2013 MADI GARIBAY MD N V25 .42 CONTRACEPTION SURVEILLANCE (IUD) 04/07/2013 HERRERA CRAWFORD APRN R 623.5 LEUKORRHEA NOT SPECIFIED INFECTIVE 04/07/2013 HERRERA CRAWFORD APRN R 789.01 ABDOMINAL PAIN RIGHT UPPER QUADRANT 04/07/2013 HERRERA CRAWFORD APRN R V25.42 CONTRACEPTION SURVEILLANCE (IUD) 04/07/2013 RODOLFO NORIEGA DO 623.5 LEUKORRHEA NOT SPECIFIED INFECTIVE 04/07/2013 RODOLFO NORIEGA DO 789.01 ABDOMINAL PAIN RIGHT UPPER QUADRANT 04/07/2013 RODOLFO NORIEGA DO V25.42 CONTRACEPTION SURVEILLANCE (IUD) 06/27/2013 RODOLFO NORIEGA DO 784.0 HEADACHE 06/27/2013 RODOLFO NORIEGA DO 790.6 OTHER ABNORMAL BLOOD CHEMISTRY 06/27/2013 VARGAS EUCEDA MD 784.0 HEADACHE 06/27/2013 VARGAS EUCEDA MD 790.6 OTHER ABNORMAL BLOOD CHEMISTRY 06/27/2013 VARGAS EUCEDA MD 784.0 HEADACHE 06/27/2013 VARGAS EUCEDA MD 790.6 OTHER ABNORMAL BLOOD CHEMISTRY 06/27/2013 MADI GARIBAY MD N 784 .0 HEADACHE 06/27/2013 MADI GARIBAY MD N 790 .6 OTHER ABNORMAL BLOOD CHEMISTRY 06/27/2013 MADI GARIBAY MD N 784 .0 HEADACHE 06/27/2013 MADI GARIBAY MD N 790 .6 OTHER ABNORMAL BLOOD CHEMISTRY 06/27/2013 MADI GARIBAY MD N 784 .0 HEADACHE 06/27/2013 MADI GARIBAY MD N 790 .6 OTHER ABNORMAL BLOOD CHEMISTRY 06/27/2013 HERRERA CRAWFORD APRN R 784.0 HEADACHE 06/27/2013 HERRERA CRAWFORD APRN R 790.6 OTHER ABNORMAL BLOOD CHEMISTRY 06/27/2013 GIOVANNA NORIEGA DOA K 784.0 HEADACHE 06/27/2013 RODOLFO NORIEGA DO K 790.6 OTHER ABNORMAL BLOOD CHEMISTRY 09/05/2013 VARGAS EUCEDA MD 354.0 CARPAL TUNNEL SYNDROME 09/05/2013 MADI GARIBAY MD N 354 .0 CARPAL TUNNEL SYNDROME 09/05/2013 MADI GARIBAY MD N 354 .0 CARPAL TUNNEL SYNDROME 09/05/2013 MADI GARIBAY MD N 354 .0 CARPAL TUNNEL SYNDROME 09/05/2013 HERRERA CRAWFORD APRN R 354.0 CARPAL TUNNEL SYNDROME 09/05/2013 RODOLFO NORIEGA DO K 354.0 CARPAL TUNNEL SYNDROME 02/10/2014 HERRERA CRAWFORD APRN R 388.70 OTALGIA UNSPECIFIED 02/10/2014 RODOLFO NORIEGA DO K 388.70 OTALGIA UNSPECIFIED 03/06/2014 RODOLFO NORIEGA DO K 240.9 GOITER UNSPECIFIED 06/08/2017 CHRISTIN DURANP Ot 625.9 FEM GENITAL SYMPTOMS NOS 07/12/2017 CHRISTIN DURANP Ot 625.9 FEM GENITAL SYMPTOMS NOS 07/12/2017 CHRISTIN DURANP Ot 625.9 FEM GENITAL SYMPTOMS NOS 09/12/2017 CHRISTIN DURANP Ot 625.9 FEM GENITAL SYMPTOMS NOS 12/06/2017 CHRISTIN DURANP Ot 625.9 FEM GENITAL SYMPTOMS NOS Procedures Code Description [place] [address] US G ALLBLADDER ULTRASOUND 04/09/2013 91662 CULT URE UROGENITAL 04/10/2013 40214 ROUT INE VENIPUNCTURE 06/27/2013 70355 CMP 06/27/2013 61043 HEPA TITIS PROFILE 06/27/2013 44995 CBC 06/27/2013 86831 ROUT INE VENIPUNCTURE 09/05/2013 60301 TSH 09/05/2013 Neurology Matt Salmeron 10/21/2013 ORTHOPEDI RANDOLPH KANE 12/03/2013 39001 US T HYROID ULTRASOUND 03/06/2014 Results Test Result Range Complete blood count (CBC) with automate d white blood cell (WBC) differential - 02/03/20 09:15 Blood leukocytes automated count (number/volume) 8.2 10*3/uL 4.3-11.0 Blood erythrocytes automated count (number/volume) 4.50 10*6/uL 4.35-5.85 Venous blood hemoglobin measurement (mass/volume) 14.1 g/dL 11.5-16.0 Blood hematocrit (volume fraction) 41 % 35-52 Automated erythrocyte mean corpuscular volume 90 [ foz_us] 80-99 Automated erythrocyte mean corpuscular h emoglobin (mass per erythrocyte) 31 pg 25-34 Automated erythrocyte mean corpuscular h emoglobin concentration measurement (mass/volume) 35 g/dL 32-36 Automated erythrocyte distribution width ratio 11. 7 % 10.0- 14.5 Automated blood platelet count (count/volume) 250 10*3/uL 130-400 Automated blood platelet mean volume measurement 10.1 [foz_us] 7.4-10.4 Automated blood neutrophils/100 leukocytes 74 % 42-75 Automated blood lymphocytes/100 leukocytes 22 % 12-44 Blood monocytes/100 leukocytes 3 % 0-12 Automated blood eosinophils/100 leukocytes 1 % 0-10 Automated blood basophils/100 leukocytes 0 % 0-10 Blood neutrophils automated count (number/volume) 6.0 10*3 1.8-7.8 Blood lymphocytes automated count (number/volume) 1.8 10*3 1.0-4.0 Blood monocytes automated count (number/volume) 0. 3 10*3 0.0-1.0 Automated eosinophil count 0.1 10*3/uL 0 .0-0.3 Automated blood basophil count (count/volume) 0.0 10*3/uL 0.0-0.1 Streptococcus pyogenes antigen detection - 02/03/20 09:15 Streptococcus pyogenes antigen detection NEGATIVE NEGATIVE Comprehensive metabolic panel - 02/03/20 09:15 Serum or plasma sodium measurement (moles/volume) 139 mmol/L 135-145 Serum or plasma potassium measurement (moles/volume) 3.6 mmol/L 3.6-5.0 Serum or plasma chloride measurement (moles/volume) 106 mmol/L 98-107 Carbon dioxide 23 mmol/L 21-32 Serum or plasma anion gap determination (moles/volume) 10 mmol/L 5-14 Serum or plasma urea nitrogen measurement (mass/volume ) 4 mg/dL 7-18 Serum or plasma creatinine measurement (mass/volume) 0.64 mg/dL 0.60-1.30 Serum or plasma urea nitrogen/creatinine mass ratio 6 NRG Serum or plasma creatinine measurement w ith calculation of estimated glomerular filtration rate > NRG Serum or plasma glucose measurement (mass/volume) 114 mg/dL 70-105 Serum or plasma calcium measurement (mass/volume) 8.8 mg/dL 8.5-10.1 Serum or plasma total bilirubin measurement (mass/volu me) 0.7 mg/dL 0.1-1.0 Serum or plasma alkaline phosphatase charles surement (enzymatic activity/volume) 79 U/L 40-136 Serum or plasma aspartate aminotransfera se measurement (enzymatic activity/volume) 24 U/L 5-34 Serum or plasma alanine aminotransferase measurement (enzymatic activity/volume) 34 U/L 0-55 Serum or plasma protein measurement (mass/volume) 6.4 g/dL 6.4-8.2 Serum or plasma albumin measurement (mass/volume) 3.8 g/dL 3.2-4.5 CALCIUM CORRECTED 9.0 mg/dL 8.5-10.1 Fibrin D-dimer FEU measurement in platel et poor plasma (mass/volume) - 02/03/20 09:15 Fibrin D-dimer FEU measurement in platelet poor plasma (mass/volume) 2.90 ug/mL 0.00-0.49 Serum or plasma choriogonadotropin (preg klaudia test) detection - 02/03/20 09:15 Serum or plasma choriogonadotropin ( test) de tection NEGATIVE NEGATIVE Serum or plasma C reactive protein measu rement (mass/volume) - 02/03/20 09:15 Serum or plasma C reactive protein measurement (mass/v olume) 4.82 mg/dL 0.00-0.50 Influenza virus A and B antigen detectio n - 02/03/20 09:15 FLU RESULT NEGATIVE FOR INFLUENZA A AND B ANTIGENS BY IA NRG Encounters ACCT No. Visit Date/Time Discharge Status Pt. Type Provider Facility Loc./Unit Complaint [id number] 03/06/2014 15:44:00 03/06/2014 23:59: 59 CLS Outpatient RODOLFO NORIEGA DO [id number] 02/10/2014 15:34:00 02/10/2014 23:59: 59 CLS Outpatient HERRERA CRAWFORD APRN [id number] 12/03/2013 09:11:00 12/03/2013 23:59: 59 CLS Outpatient MADI GARIBAY MD [id number] 11/18/2013 11:13:00 11/18/2013 23:59: 59 CLS Outpatient MADI GARIBAY MD [id number] 10/17/2013 15:49:00 10/17/2013 23:59: 59 CLS Outpatient MADI GARIBAY MD [id number] 09/05/2013 11:24:00 09/05/2013 23:59: 59 CLS Outpatient VARGAS EUCEDA MD [id number] 06/30/2013 11:30:00 06/30/2013 23:59: 59 CLS Outpatient VARGAS EUCEDA MD [id number] 06/27/2013 14:04:00 06/27/2013 23:59: 59 CLS Outpatient RODOLFO NORIEGA DO [id number] 10/14/2012 13:47:00 10/14/2012 23:59: 59 CLS Outpatient [id number] 04/07/2013 16:32:00 Document Registration [id number] 07/02/2014 19:02:00 014 23:59:59 CLS Outpatient [id number] 03/23/2014 12:12:00 014 23:59:59 CLS Outpatient CHRISTIN DURAN [facility] RAD PELVIC PAIN [id number] 03/19/2014 15:29:00 014 23:59:59 CLS Outpatient [id number] 01/27/2014 18:42:00 014 20:03:00 DIS Emergency [id number] 10/29/2013 09:28:00 11:16:00 DIS Emergency [id number] 06/14/2013 11:52:00 10:50:00 DIS Inpatient [id number] 06/13/2013 15:37:00 21:34:00 DIS Emergency [id number] 04/09/2013 09:11:00 23:59:59 CLS Outpatient [id number] 04/06/2013 21:28:00 23:59:59 CLS Emergency [id number] 02/20/2013 18:24:00 23:59:59 CLS Outpatient [id number] 02/03/2020 08:42:[address] Emergency BRET RUSS, BARTOLOME Ely [facility] ER CHEST PAIN;ITCHY;COUGH [id number] 05/31/2017 13:20:00 05/31/2017 23:59:5 9 CLS [facility]
[2020-02-03] MEDS ORDERED: IOHEXOL 350 MG/ML 100 ML (OMNIPAQUE 350) VIAL IV ONE (10:00)
[2020-02-03] MEDS ORDERED: HOLD METFORMIN - RECEIVED CONTRAST 20 ML VIAL IV SCH (10:00)
[2020-02-03] MEDS ORDERED: NS 100 ML (IVPB) BAG IV ONE (10:00)
[2020-02-03 10:04] LABS: ERYTHROCYTE SEDIMENTATION RATE 29 MM/HR (0-20)
--- NOTE | 2020-02-03 10:21 | Diagnostic Imaging Report ---
INDICATION: Chest pain, cough. COMPARISON: 10/29/2013 TECHNIQUE: Single radiograph of the chest dated 02/13/2020 FINDINGS: The cardiac silhouette is within normal limits in size. No significant pulmonary vascular congestion. Persistent left basilar scarring is again noted. The lungs are otherwise clear of focal pulmonary opacity. No pleural effusion. No pneumothorax. No acute osseous abnormality. IMPRESSION: Stable minimal left basilar scarring without superimposed acute cardiopulmonary abnormality. Dictated by: Dictated on workstation # [id number]
--- NOTE | 2020-02-03 10:47 | Diagnostic Imaging Report ---
PROCEDURE: CT angiography of the chest with contrast. TECHNIQUE: Multiple contiguous axial images were obtained through the chest after uneventful bolus administration of intravenous contrast. 3D reconstructed CTA MIP acquisitions were also performed. Auto Exposure Controls were utilized during the CT exam to meet ALARA standards for radiation dose reduction. DATE: February 03, 2020. COMPARISON: Chest radiograph February 03, 2020. INDICATION: 39-year-old female, shortness of breath, wheezing, cough. FINDINGS: There is some respiratory motion artifact. There are areas of mosaic lung attenuation which may relate to small airways disease and air trapping. Chronic vascular etiology is the primary differential diagnostic consideration. There is minimal atelectasis in the lingula. There is no additional focal airspace consolidation. There is no pneumothorax. There is no pleural effusion. The central airways are patent. There is no identified pulmonary embolus. The main pulmonary artery is normal in caliber. The heart is not enlarged. There is no identified pericardial effusion. There is no identified abnormally enlarged mediastinal, hilar, or axillary lymph node which meets CT size criteria for adenopathy. The imaged portions of the upper abdomen are unremarkable. There are multilevel degenerative changes of the spine. There is no identified acute bony abnormality. IMPRESSION: 1. Mosaic lung attenuation which may relate to small airways disease and air trapping. Chronic vascular etiology is the primary differential diagnostic consideration. 2. No identified acute cardiopulmonary abnormality. Dictated by: Dictated on workstation # [id number]
[2020-02-03] MEDS ORDERED: AZITHROMYCIN 250 MG TAB (ZITHROMAX) PO ONE (11:30)
[2020-02-03] MEDS ORDERED: AZIT250T12 PO (11:45)
--- NOTE | 2020-02-03 11:45 | ED General ---
General Chief Complaint: Respiratory Problems Stated Complaint: CHEST PAIN;ITCHY;COUGH Nursing Triage Note: PT STATES HAS BEEN NOT FEELING WELL SINCE SUNDAY LAST WEEK. DENIES FEVER STATES HAS C/P /. SL COUGH. GETS TIRED EASY AND HAS ITCHING BUT NO RASH. PT HAS NAUSEA BUT HAS VOMITING AND NO DIARRHEA Nursing Sepsis Screen: No Definite Risk Source of Information: Patient Exam Limitations: No Limitations History of Present Illness Date Seen by Provider: Feb 03, 2020 Time Seen by Provider: 09:00 Initial Comments This 39-year-old woman presents to the emergency room with complaints of shortness of breath, dry cough, myalgia, pruritic rash on her hands, tachycardia, and pleuritic chest pain. She traveled to [facility] in [place] with her daughter last week for a procedure. She is afebrile. 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 Allergies and Home Medications Allergies Coded Allergies: No Known Drug Allergies (Unverified , 04/28/10) Home Medications Azithromycin 250 Mg Tablet, 250 MG PO DAILY Prescribed by: BARTOLOME JOHNSON on 02/03/20 1145 Patient Home Medication List Home Medication List Reviewed: Yes Review of Systems Review of Systems Constitutional: see HPI EENTM: see HPI Respiratory: see HPI Cardiovascular: see HPI Gastrointestinal: nausea Genitourinary: no symptoms reported : No Musculoskeletal: see HPI Skin: no symptoms reported Psychiatric/Neurological: No Symptoms Reported Hematologic/Lymphatic: No Symptoms Reported Past Uuvcian-Vcbsec-Lspxad Hx Past Med/Social Hx: Reviewed Nursing Past Med/Soc Hx Patient Social History Alcohol Use: Denies Use Recreational Drug Use: No (SMOKES CIGARETTES) Smoking Status: Current Everyday Smoker Type Used: Cigarettes Recent Foreign Travel: No Contact w/Someone Who Travel: No Recent Infectious Disease Expo: No Recent Hopitalizations: Yes Physical Abuse: No Sexual Abuse: No Immunizations Up To Date Tetanus Booster (TDap): Less than 5yrs Past Medical History Surgeries: Yes (CARPAL TUNNLE, CERCLAGE) Respiratory: No Cardiac: No Neurological: No : No (MERANIA) Reproductive Disorders: Yes (STILLBORN TWINS, INCOMPETENT CERVIX) 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 oz. 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 Norm as Tested Skin: Normal Color, Warm/Dry Progress/Results/Core Measures Suspected Sepsis Recent Fever Within 48 Hours: No Infection Criteria Present: None New/Unexplained Altered Menta: No Sepsis Screen: No Definite Risk SIRS Temperature: Pulse: 117 Respiratory Rate: 24 Laboratory Tests 02/03/20 09:15: White Blood Count 8.2 Blood Pressure 143 /97 Mean: 112 Laboratory Tests 02/03/20 09:15: Creatinine 0.64, Platelet Count 250, Total Bilirubin 0.7 Results/Orders Lab Results Laboratory Tests Test 02/03/20 09:15 Range/Units White Blood Count 8.2 4.3-11.0 10^3/uL Red Blood Count 4.50 4.35-5.85 10^6/uL Hemoglobin 14.1 11.5-16.0 G/DL Hematocrit 41 35-52 % Mean Corpuscular Volume 90 80-99 FL Mean Corpuscular Hemoglobin 31 25-34 PG Mean Corpuscular Hemoglobin Concent 35 32-36 G/DL Red Cell Distribution Width 11.7 10.0-14.5 % Platelet Count 250 130-400 10^3/uL Mean Platelet Volume 10.1 7.4-10.4 FL Neutrophils (%) (Auto) 74 42-75 % Lymphocytes (%) (Auto) 22 12-44 % Monocytes (%) (Auto) 3 0-12 % Eosinophils (%) (Auto) 1 0-10 % Basophils (%) (Auto) 0 0-10 % Neutrophils # (Auto) 6.0 1.8-7.8 X 10^3 Lymphocytes # (Auto) 1.8 1.0-4.0 X 10^3 Monocytes # (Auto) 0.3 0.0-1.0 X 10^3 Eosinophils # (Auto) 0.1 0.0-0.3 10^3/uL Basophils # (Auto) 0.0 0.0-0.1 10^3/uL Erythrocyte Sedimentation Rate 29 H 0-20 MM/HR D-Dimer 2.90 H 0.00-0.49 UG/ML Sodium Level 139 135-145 MMOL/L Potassium Level 3.6 3.6-5.0 MMOL/L Chloride Level 106 98-107 MMOL/L Carbon Dioxide Level 23 21-32 MMOL/L Anion Gap 10 5-14 MMOL/L Blood Urea Nitrogen 4 L 7-18 MG/DL Creatinine 0.64 0.60-1.30 MG/DL Estimat Glomerular Filtration Rate > 60 BUN/Creatinine Ratio 6 Glucose Level 114 H 70-105 MG/DL Calcium Level 8.8 8.5-10.1 MG/DL Corrected Calcium 9.0 8.5-10.1 MG/DL Total Bilirubin 0.7 0.1-1.0 MG/DL Aspartate Amino Transf (AST/SGOT) 24 5-34 U/L Alanine Aminotransferase (ALT/SGPT) 34 0-55 U/L Alkaline Phosphatase 79 40-136 U/L C-Reactive Protein High Sensitivity 4.82 H 0.00-0.50 MG/DL Total Protein 6.4 6.4-8.2 GM/DL Albumin 3.8 3.2-4.5 GM/DL Serum Test, Qualitative NEGATIVE NEGATIVE Group A Streptococcus Screen NEGATIVE NEGATIVE Micro Results Microbiology 02/03/20 Influenza Types A,B Antigen (UDAY) - Final, Complete My Orders Orders - BARTOLOME QUEEN MD Cbc With Automated Diff (02/03/20 09:06) Comprehensive Metabolic Panel (02/03/20 09:06) Hs C Reactive Protein (02/03/20 09:06) Rapid Strep A Screen (02/03/20 09:06) Influenza A And B Antigens (02/03/20 09:06) Erythrocyte Sedimentation Rate (02/03/20 09:06) Chest 1 View, Ap/Pa Only (02/03/20 09:06) Hcg,Qualitative Serum (02/03/20 09:06) Fibrin Degradation Products (02/03/20 09:06) Coronavirus Sars-Cov-2 So 2019 (02/03/20 09:06) Ct Angio Chest W (02/03/20 09:48) Iohexol Injection (Omnipaque 350 Mg/Ml 1 (02/03/20 10:00) Received Contrast (Hold Metformin- Contr (02/03/20 10:00) Ns (Ivpb) (Sodium Chloride 0.9% Ivpb Bag (02/03/20 10:00) Azithromycin Tablet (Zithromax Tablet) (02/03/20 11:30) Medications Given in ED Current Medications Medications Dose Ordered Sig/Brissa Route Start Time Stop Time Status Last Admin Dose Admin Azithromycin 500 mg ONCE ONCE PO 02/03/20 11:30 02/03/20 11:31 DC 02/03/20 11:52 500 MG Iohexol 100 ml ONCE ONCE IV 02/03/20 10:00 02/03/20 10:01 DC 02/03/20 10:35 82 ML Sodium Chloride 100 ml ONCE ONCE IV 02/03/20 10:00 02/03/20 10:01 DC 02/03/20 10:35 80 ML Vital Signs/I&O 02/03/20 02/03/20 08:49 11:55 Temp 37.1 37.1 Pulse 117 93 Resp 24 24 B/P (MAP) 143/97 (112) 121/77 (112) Pulse Ox 95 95 Capillary Refill : Less Than 3 Seconds Blood Pressure Mean: 112 Progress Note : Progress Note Influenza screen was negative. D-dimer was elevated. CT angiogram of the chest was obtained. There were Mosaic pattern seen on the lungs. This was discussed with the radiologist. This was felt to be more of a chronic pattern by the radiologist. However, infectious etiologies such as atypical pneumonia or COVID-19 could not be ruled out. COVID-19 swab was obtained. Patient was treated with azithromycin and ultimately discharged home. Diagnostic Imaging Diagonstic Imaging: Xray Plain Films/CT/US/NM/MRI: chest Comments Chest x-ray viewed by me and report reviewed. See report below: NAME: KELTON DILLON REC#: [id number] PT STATUS: [facility] ER : 1980 PHYSICIAN: BARTOLOME QUEEN MD ADMIT DATE: 02/03/20/ER Signed Date of Exam:02/03/20 CHEST 1 VIEW, AP/PA ONLY INDICATION: Chest pain, cough. COMPARISON: 10/29/2013 TECHNIQUE: Single radiograph of the chest dated 02/13/2020 FINDINGS: The cardiac silhouette is within normal limits in size. No significant pulmonary vascular congestion. Persistent left basilar scarring is again noted. The lungs are otherwise clear of focal pulmonary opacity. No pleural effusion. No pneumothorax. No acute osseous abnormality. IMPRESSION: Stable minimal left basilar scarring without superimposed acute cardiopulmonary abnormality. Dictated by: Dictated on workstation # [id number] Dict: 02/03/20 1018 Trans: 02/03/20 1247 [id number] Interpreted by: WIL MURO MD Electronically signed by: WIL MURO MD 02/03/20 1247 Diagonstic Imaging: CT Plain Films/CT/US/NM/MRI: chest Comments CT chest viewed by me and were reviewed. See report below: NAME: KELTON DILLON [facility] REC#: [id number] PT STATUS: [facility] ER : 1980 PHYSICIAN: BARTOLOME QUEEN MD ADMIT DATE: 02/03/20/ER Signed Date of Exam:02/03/20 CT ANGIO CHEST W PROCEDURE: CT angiography of the chest with contrast. TECHNIQUE: Multiple contiguous axial images were obtained through the chest after uneventful bolus administration of intravenous contrast. 3D reconstructed CTA MIP acquisitions were also performed. Auto Exposure Controls were utilized during the CT exam to meet ALARA standards for radiation dose reduction. DATE: February 03, 2020. COMPARISON: Chest radiograph February 03, 2020. INDICATION: 39-year-old female, shortness of breath, wheezing, cough. FINDINGS: There is some respiratory motion artifact. There are areas of mosaic lung attenuation which may relate to small airways disease and air trapping. Chronic vascular etiology is the primary differential diagnostic consideration. There is minimal atelectasis in the lingula. There is no additional focal airspace consolidation. There is no pneumothorax. There is no pleural effusion. The central airways are patent. There is no identified pulmonary embolus. The main pulmonary artery is normal in caliber. The heart is not enlarged. There is no identified pericardial effusion. There is no identified abnormally enlarged mediastinal, hilar, or axillary lymph node which meets CT size criteria for adenopathy. The imaged portions of the upper abdomen are unremarkable. There are multilevel degenerative changes of the spine. There is no identified acute bony abnormality. IMPRESSION: 1. Mosaic lung attenuation which may relate to small airways disease and air trapping. Chronic vascular etiology is the primary differential diagnostic consideration. 2. No identified acute cardiopulmonary abnormality. Dictated by: Dictated on workstation # [id number] Dict: 02/03/20 1037 Trans: 02/03/20 1657 [id number] Interpreted by: MARTIN MEYER MD Electronically signed by: AMRTIN MEYER MD 02/03/20 1657 Departure Impression Primary Impression: Pleuritic chest pain Additional Impressions: Abnormal chest CT Myalgia Pruritic rash Disposition: 01 HOME, SELF-CARE Condition: Stable Departure-Patient Inst. Decision time for Depature: 11:41 Referrals: [facility] (PCP/Family) Primary Care Physician Patient Instructions: Coronavirus Disease 2019 (COVID-19) Add. Discharge Instructions: Drink plenty of clear liquids to stay well-hydrated. For pain and fever you may take ibuprofen up to 600 mg every 6 hours as needed and/or acetaminophen up to 1000 mg every 6 hours as needed. Follow-up at the [facility]. They should be calling you for a phone check up. If you do not hear from them by end of day tomorrow, please call. You and your household members and close contacts should home isolate until the results of your COVID-19 testing are known and you receive further instructions. Work on quitting smoking as rapidly as possible. Complete your azithromycin antibiotic as prescribed. You may use topical anti-itch products on your rash such as topical diphenhydramine or hydrocortisone cream. You may also use systemic antihistamines such as Zyrtec, Claritin, Benadryl, etc. Call and return to care if you have worsening symptoms not well controlled at home. All discharge instructions reviewed with patient and/or family. Voiced understanding. Scripts Azithromycin (Azithromycin) 250 Mg Tablet 250 MG PO DAILY, #4 TAB 0 Refills Prov: BARTOLOME QUEEN MD 02/03/20 BARTOLOME QUEEN MD Feb 03, 2020 11:45
[2020-02-03 11:55] VITALS: BP 121/77
== END 2020-02-03 11:55 | disposition home or self-care (01) ==
LOC: EDUNIT# 08:40 → ER 08:42
DX: R07.1 Chest pain on breathing (principal); R91.8 Other nonspecific abnormal finding of lung field; M79.18 Myalgia, other site; L29.8 Other pruritus; F17.210 Nicotine dependence, cigarettes, uncomplicated; Z20.828 Contact with and (suspected) exposure to other viral communicable diseases
CPT/HCPCS: 36415; 71045; 71275; 80053; 84703; 85025; 85379; 85652; 86141; 87430; 87635; 87804